=== PATIENT | female | born 1945 | race African-American/Black ===

== ENCOUNTER 2016-10-10 10:52 | Inpatient (IN) | payer MEDICARE, MEDICAID ==
[2016-10-10] MEDS ORDERED: NORMAL SALINE 1000 ML 1,000 ML IV ONE (11:34)
--- NOTE | 2016-10-10 11:46 | ER Document Report ---
ED General - General Chief Complaint: General Weakness Stated Complaint: FLU LIKE SYMPTOMS Notes: Patient was brought in by EMS today. She is telling me that she "can't move my body", unable to walk for the past couple of months. She has very bad arthritis and says she has gout and that's been affecting her joints for the past month and a half. She tells me that she's not been eating well, has decreased activity level from her baseline and was last able to ambulate about 2 months ago. She has a home care nurse who comes in to care for the patient 4 times a week and she has a sister who comes and checks on her daily. Patient is complaining of more weakness today than usual. Patient is not sure if she's had a fever. Patient says that she is feeling short of breath, but has a diagnosis of COPD and still smokes cigarettes. Discharge planning here today investigated this case and says that the family and her primary care physician are working on getting her placed into a fpc. TRAVEL OUTSIDE OF THE [place] IN LAST 30 DAYS: No - Related Data Allergies/Adverse Reactions: No Known Allergies Allergy (Verified 03/16/14 21:48) Home Medications: Current Home Medications Albuterol Sulfate [Albuterol Sulfate 2.5mg/3 mL] 3 ml IH TIDP PRN 10/10/16 [ History] Albuterol Sulfate [Albuterol Sulfate 4 mg Tablet 12 hour] 4 mg PO BID 10/10/16 [ History] Amlodipine Besylate [Norvasc 10 mg Tablet] 10 mg PO QHS 10/10/16 [History] Carvedilol [Coreg 6.25 mg Tablet] 6.25 mg PO BID 10/10/16 [History] Cetirizine HCl [Zyrtec 10 mg Tablet] 10 mg PO DAILY 10/10/16 [History] Fluticasone Propionate [Flonase Nasal [place] 50 Mcg/[place] 16 gm] 1 spray NASL BID 10/10/16 [History] Fluticasone/Salmeterol [Advair 250-50 Diskus 28 dose] 1 puff IH BID 10/10/16 [ History] Hydrocodone Bit/Acetaminophen [Hydrocodon-Acetaminophn 10-325] 1 tab PO Q4HP PRN 10/10/16 [History] Lorazepam [Ativan 0.5 mg Tablet] 0.5 mg PO TIDP PRN 10/10/16 [History] Montelukast Sodium [Singulair 10 mg Tablet] 10 mg PO DAILY 10/10/16 [History] Olmesartan Medoxomil [Benicar] 40 mg PO QHS 10/10/16 [History] Omeprazole 40 mg PO DAILY 10/10/16 [History] Pnv No.122/Iron/Folic Acid [ Multi Tablet] 1 tab PO DAILY 10/10/16 [ History] Prednisone [Deltasone 10 mg Tablet] 10 mg PO BID 10/10/16 [History] Past Medical History - Social History Smoking Status: Current Every Day Smoker Cigarette use (# per day): Yes Family History: None - Past Medical History Cardiac Medical History: Reports: Hx Hypertension Pulmonary Medical History: Reports: Hx COPD Neurological Medical History: Denies: Hx Seizures GI Medical History: Reports: Hx Gastroesophageal Reflux Disease, Hx Ulcer Musculoskeltal Medical History: Reports Hx Arthritis - Rheumatoid arthritis, osteo, Reports Hx Gout Past Surgical History: - Immunizations Hx Diphtheria, Pertussis, Tetanus Vaccination: Yes Review of Systems - Review of Systems Notes: Review of systems is somewhat limited because of patient's capability of answering questions. REVIEW OF SYSTEMS: CONSTITUTIONAL : Not sure if he has had any fever. EENT: Denies eye, ear, nose or mouth or throat pain or other symptoms. CARDIOVASCULAR: Denies chest pain, but occasionally has "tightness" in her chest, but none today. RESPIRATORY: Has had some shortness of breath, but denies cough, chest congestion. GASTROINTESTINAL: Denies abdominal pain or nausea, vomiting, or diarrhea. GENITOURINARY: Denies difficulty or painful urinating, urinary frequency, blood in urine. MUSCULOSKELETAL: Patient has chronic joint deformities of the fingers and hands as well as contractures of the larger joints, secondary to her severe arthritis. SKIN: Denies rash or skin lesions. Just developed a small skin erosion of the lower thoracic, upper lumbar spine over the spinous process, just noted by sister a couple of days ago. No infection, abscess, or drainage there. NEUROLOGICAL: Denies LOC or altered mental status. Denies headache. Denies sensory loss or motor deficits. PSYCHIATRIC: Denies anxiety or stress. Denies depression. ALL OTHER SYSTEMS REVIEWED AND NEGATIVE. Physical Exam - Vital signs Vitals: Resp Pulse Ox 34 H 95 10/10/16 11:13 10/10/16 11:13 Initial vital signs Initial vital signs are temp 99.2, heart rate 99, and respiratory rate 34 with a 95% O2 sat. Interpretation: Tachypneic - Mild, Febrile - Low-grade - Notes Notes: PHYSICAL EXAMINATION: GENERAL: Chronically ill appearing, frail, debilitated elderly female. Vital signs of note are temp 99.2, respiratory rate 34, O2 sat 95% HEAD: Atraumatic, normocephalic. ENT: oropharynx clear without exudates. Moist mucous membranes. NECK: Normal range of motion, supple. LUNGS: Breath sounds show some bibasilar rales. Heart rate 25-30 at bedside by me. HEART: Regular rate and rhythm without murmurs. Not tachycardic. ABDOMEN: Soft, nontender. No guarding or rebound. BACK: No tenderness throughout entire back. Very small, less than 2 cm diameter, abrasion over the lower thoracic or upper most lumbar vertebral spinous process. EXTREMITIES: Multiple arthritic deformities with contractures of all 4 extremities and almost all her joints. NEUROLOGICAL: Normal speech. Exam is difficult because of patient's physical incapabilities. Awake, alert, and oriented x3. PSYCH: Normal mood, normal affect. SKIN: Warm, dry, no rashes. Course - Re-evaluation Re-evalutation: 10/10/16 15:33 Sister says the patient has actually not been able to walk for about a year and a half to 2 years, but really deteriorated significantly in her functional capabilities in the past month to month and a half. Discharge planning was called who spoke with the patient's primary care office and we learned that in progress is an application for this patient to move into a fpc. Spoke with hospitalist sound person, who will admit the patient for weakness, leukocytosis, hypokalemia. - Vital Signs Vital signs: Temp Pulse Resp BP Pulse Ox 98.7 F 105 H 33 H 196/103 H 100 10/10/16 16:59 10/10/16 11:15 10/10/16 19:20 10/10/16 19:20 10/10/16 19:20 - Laboratory Result Diagrams: 10/10/16 12:27 10/10/16 12:27 Laboratory results interpreted by me: 10/10/16 10/10/16 10/10/16 12:27 12:27 12:27 WBC 15.6 H Hgb 11.3 L Hct 35.6 L MCHC 31.8 L RDW 17.0 H Seg Neuts % (Manual) 95 H Lymphocytes % (Manual) 3 L Monocytes % (Manual) 1 L Metamyelocytes % 1 H Abs Neuts (Manual) 15.0 H Potassium 3.3 L Carbon Dioxide 33 H Creatinine 0.36 L Glucose 166 H Creatine Kinase < 20 L Total Protein 4.6 L Albumin 2.8 L Lipase 11.2 L TSH 0.14 L Urine Protein Urine Glucose (UA) Urine Urobilinogen Ur Leukocyte Esterase Urine Ascorbic Acid 10/10/16 13:35 WBC Hgb Hct MCHC RDW Seg Neuts % (Manual) Lymphocytes % (Manual) Monocytes % (Manual) Metamyelocytes % Abs Neuts (Manual) Potassium Carbon Dioxide Creatinine Glucose Creatine Kinase Total Protein Albumin Lipase TSH Urine Protein 30 H Urine Glucose (UA) 50 H Urine Urobilinogen 2.0 H Ur Leukocyte Esterase SMALL H Urine Ascorbic Acid 40 H - Diagnostic Test Radiology reviewed: Image reviewed, Reports reviewed - Chest x-ray is unchanged from previous x-rays. She appears to have COPD. No evidence of pneumonia or acute process. - EKG Interpretation by Me Additional EKG results interpreted by me: 10/10/16 13:43 EKG shows an "ectopic atrial rhythm" with LVH, borderline RAD, ischemia or strain. Some ST changes that were not present on the patient's EKG 08/28/2016. Critical Care Note - Critical Care Note Total time excluding time spent on procedures (mins): 30 Discharge - Discharge Clinical Impression: Weakness, Hypokalemia Leukocytosis Qualifiers: Leukocytosis type: unspecified Qualified Code(s): D72.829 - Elevated white blood cell count, unspecified Disposition: ADMITTED OBSERVATION Admitting Provider: Hospitalist Unit Admitted: Telemetry
[2016-10-10 12:54] LABS: HEMATOCRIT 35.6 % (36.0-47.0); HEMOGLOBIN 11.3 g/dL (12.0-15.5); HGB HCT DIFFERENCE -1.7; MEAN CORPUSCULAR HEMOGLOBIN 29.3 pg (27.0-33.4); MEAN CORPUSCULAR HGB CONC 31.8 g/dL (32.0-36.0); MEAN CORPUSCULAR VOLUME 92 fl (80-97); RED BLOOD COUNT 3.87 10^6/uL (3.72-5.28); WHITE BLOOD COUNT 15.6 10^3/uL (4.0-10.5)
[2016-10-10 13:10] LABS: ALANINE AMINOTRANSFERASE 21 U/L (9-52); ALBUMIN 2.8 g/dL (3.5-5.0); ALKALINE PHOSPHATASE 67 U/L (38-126); ANION GAP 8 (5-19); ASPARTATE AMINO TRANSFERASE 17 U/L (14-36); BILIRUBIN,TOTAL 0.5 mg/dL (0.2-1.3); BLOOD UREA NITROGEN 17 mg/dL (7-20); CALCIUM 9.9 mg/dL (8.4-10.2); CARBON DIOXIDE 33 mmol/L (22-30); CHLORIDE 103 mmol/L (98-107); CREATININE RESULT 0.36 mg/dL (0.52-1.25); GLUCOSE 166 mg/dL (75-110); LIPASE 11.2 U/L (23-300); POTASSIUM 3.3 mmol/L (3.6-5.0); SODIUM 144.1 mmol/L (137-145); TOTAL PROTEIN 4.6 g/dL (6.3-8.2); URIC ACID 2.6 mg/dL (2.5-7.5)
[2016-10-10 13:17] LABS: CREATINE KINASE < 20 U/L (30-135)
[2016-10-10 13:21] LABS: CREATINE KINASE MB 1.06 ng/mL (<4.55); TROPONIN I 0.017 ng/mL
[2016-10-10] MEDS ORDERED: POTASSIUM CHLORIDE 10 MEQ TABLET.SA PO ONE (13:40)
[2016-10-10 13:46] LABS: ANISOCYTOSIS SLIGHT; BASOPHILS % (MANUAL) 0 % (0-2); EOSINOPHILS % (MANUAL) 0 % (0-6); LYMPHOCYTES % (MANUAL) 3 % (13-45); OVALOCYTES 1+; POIKILOCYTOSIS 1+; POLYCHROMASIA 1+; TOTAL CELLS COUNTED 100
[2016-10-10] MEDS ORDERED: HYDROCODONE/ACETAMINOPHEN 5-325 MG TABLET PO ONE (13:50)
[2016-10-10] MEDS ORDERED: CEFTRIAXONE 1 GM/D5W RTU 50 ML IV ONE (14:11)
[2016-10-10 14:14] LABS: APPEARANCE,URINE CLEAR; BILIRUBIN,URINE NEGATIVE (NEGATIVE); GLUCOSE, URINE 50 mg/dL (NEGATIVE); KETONES,URINE NEGATIVE (NEGATIVE); LEUKOCYTE ESTERASE,URINE SMALL (NEGATIVE); NITRITE,URINE NEGATIVE (NEGATIVE); PROTEIN,URINE 30 mg/dL (NEGATIVE); URINE SPECIFIC GRAVITY 1.031
--- NOTE | 2016-10-10 16:29 | PDOC H&P ---
History of Present Illness Admission Date/PCP: LESLEY ANDINO MD Patient complains of: Generalized weakness History of Present Illness: [place] YUAN is a 71 year old female with underlying COPD, hypertension, gout, rheumatoid arthritis debilitated and bedbound with multiple contractures and scoliosis presents to the hospital because of generalized weakness for the past few days. The patient has been having runny nose and postnasal drip for the past few weeks. Patient has nasal medication for allergies. Occasionally there be a cough but no chest congestion or shortness of breath. Patient denies having any chills or fever. For the past few days the patient is unable to exert much effort. She feels generally weak. There is no diarrhea. No discharges or frequency. No chest pain or shortness of breath. No sore throat or swollen glands in the neck. She was brought to the emergency room for evaluation. WBC was elevated. Fever was likewise noted as well. Urinalysis was abnormal. Patient however reports intermittent wheezing. The patient was then referred for admission. Past Medical History Past Medical History: Medication reconciliation pending verification from the patient's pharmacist Cardiac Medical History: Reports: Hypertension Pulmonary Medical History: Reports: Chronic Obstructive Pulmonary Disease (COPD) Neurological Medical History: Denies: Seizures GI Medical History: Reports: Gastroesophageal Reflux Disease Musculoskeltal Medical History: Reports: Arthritis - Rheumatoid arthritis, osteo , Gout, Other - Rheumatoid arthritis Past Surgical History Past Surgical History: Reports: Other - Patient denies any recent operations. Social History Smoking Status: Current Every Day Smoker Frequency of Alcohol Use: None Hx Recreational Drug Use: No Drugs: None Family History Family History: Other - Unknown to the patient, previous report reveals venous thrombosis Parental Family History Reviewed: Yes Children Family History Reviewed: Yes Sibling(s) Family History Reviewed.: Yes Medication/Allergy Home Medications: Amlodipine Besylate 1 tab PO QHS 03/16/14 Esomeprazole Magnesium [Nexium] 1 tab PO DAILY 03/16/14 Hydrocodone Bit/Acetaminophen [Hydrocodon-Acetaminophn 10-325] 1 tab PO TID PRN 03/16/14 Olmesartan Medoxomil [Benicar] 1 tab PO QHS 03/16/14 Ibuprofen [Motrin 600 Mg Tablet] 600 mg PO TID #30 tablet 03/18/[address]/Potassium Clavulanate [Augmentin 500-125 Tablet] 1 tab PO Q8 #21 tablet 10/01/15 Hydrocodone Bit/Acetaminophen [Hydrocodon-Acetaminophn 10-325] 1 each PO 5XDP PRN #10 tablet 10/01/15 Prednisone [Deltasone 10 mg Tablet] 10 mg PO ASDIR PRN #15 tablet 10/01/15 Fluticasone Propionate [Flonase Nasal [place] 50 Mcg/[place] 16 gm] 2 sprays NASL Q12 #1 inhaler 02/23/16 Etodolac [Lodine] 200 mg PO BID #14 capsule 05/25/16 Polyethylene Glycol 3350 [Miralax Powder 17 gm/Packet] 17 gm PO DAILY #30 powd.pack 07/02/16 Sulfamethoxazole/Trimethoprim [Septra-Ds 800-160 mg Tablet] 1 tab PO BID #10 tablet 08/28/16 Allergies/Adverse Reactions: No Known Allergies Allergy (Verified 03/16/14 21:48) Review of Systems Constitutional: PRESENT: chills, fever(s), weakness - Generalized. ABSENT: headache(s), night sweats, weight gain, weight loss Eyes: ABSENT: visual disturbances Ears: ABSENT: hearing changes Nose, Mouth, and Throat: ABSENT: mouth pain, sore throat Cardiovascular: PRESENT: edema - Left lower extremity. ABSENT: chest pain, dyspnea on exertion, orthropnea, palpitations Respiratory: ABSENT: cough, dyspnea, hemoptysis, sputum Gastrointestinal: ABSENT: abdominal pain, constipation, diarrhea, hematemesis, hematochezia, melena, nausea, vomiting Genitourinary: ABSENT: dysuria, hematuria Musculoskeletal: ABSENT: joint swelling Integumentary: ABSENT: rash, wounds Neurological: ABSENT: abnormal gait, abnormal speech, confusion, dizziness, focal weakness, syncope Psychiatric: ABSENT: anxiety, depression, homidical ideation, suicidal ideation Endocrine: ABSENT: cold intolerance, heat intolerance, polydipsia, polyphagia, polyuria Hematologic/Lymphatic: ABSENT: easy bleeding, easy bruising Physical Exam Vital Signs: Temp Pulse Resp BP Pulse Ox 98.2 F 105 H 33 H 182/108 H 97 10/10/16 12:25 10/10/16 11:15 10/10/16 14:31 10/10/16 14:31 10/10/16 14:31 General appearance: PRESENT: mild distress, thin, other - This patient complete sentences with some interruption Head exam: PRESENT: atraumatic, normocephalic Eye exam: PRESENT: conjunctiva pink, EOMI, PERRLA. ABSENT: scleral icterus Ear exam: PRESENT: normal external ear exam. ABSENT: drainage Mouth exam: PRESENT: dry mucosa, neck supple, tongue midline Throat exam: ABSENT: post pharyngeal erythema, tonsillar erythema, tonsillar exudate Neck exam: ABSENT: carotid bruit, JVD, lymphadenopathy, thyromegaly Respiratory exam: PRESENT: decreased breath sounds - Bilateral. ABSENT: rales, rhonchi, wheezes Cardiovascular exam: PRESENT: RRR. ABSENT: diastolic murmur, gallop, rubs, systolic murmur Pulses: PRESENT: normal dorsalis pedis pul Vascular exam: PRESENT: normal capillary refill GI/Abdominal exam: PRESENT: hypoactive bowel sounds, soft. ABSENT: distended, guarding, mass, organolmegaly, rebound, tenderness Rectal exam: PRESENT: deferred Extremities exam: PRESENT: full ROM, +1 edema - Left lower extremity. ABSENT: calf tenderness, clubbing Musculoskeletal exam: PRESENT: deformity - Contracture deformity on the hips bilateral lower extremity, other - scoliosis Neurological exam: PRESENT: alert, awake, oriented to situation Psychiatric exam: PRESENT: appropriate affect, normal mood. ABSENT: homicidal ideation, suicidal ideation Skin exam: PRESENT: dry, intact, warm. ABSENT: cyanosis, rash Results Laboratory Results: 10/10/16 12:27 10/10/16 12:27 10/10/16 10/10/16 10/10/16 12:27 12:27 13:35 WBC 15.6 H RBC 3.87 Hgb 11.3 L Hct 35.6 L MCV 92 MCH 29.3 MCHC 31.8 L RDW 17.0 H Plt Count 217 Seg Neutrophils % Not Reportable Lymphocytes % Not Reportable Monocytes % Not Reportable Eosinophils % Not Reportable Basophils % Not Reportable Absolute Neutrophils Not Reportable Absolute Lymphocytes Not Reportable Absolute Monocytes Not Reportable Absolute Eosinophils Not Reportable Absolute Basophils Not Reportable Sodium 144.1 Potassium 3.3 L Chloride 103 Carbon Dioxide 33 H Anion Gap 8 BUN 17 Creatinine 0.36 L Est GFR ( Amer) > 60 Est GFR (Non-Af Amer) > 60 Glucose 166 H Uric Acid 2.6 Calcium 9.9 Total Bilirubin 0.5 AST 17 ALT 21 Alkaline Phosphatase 67 Total Protein 4.6 L Albumin 2.8 L Lipase 11.2 L Urine Color YELLOW Urine Appearance CLEAR Urine pH 5.0 Ur Specific [place] 1.031 Urine Protein 30 H Urine Glucose (UA) 50 H Urine Ketones NEGATIVE Urine Blood NEGATIVE Urine Nitrite NEGATIVE Ur Leukocyte Esterase SMALL H Urine WBC (Auto) 4 Urine RBC (Auto) 2 10/10/16 10/10/16 12:27 12:27 Creatine Kinase < 20 L CK-MB (CK-2) 1.06 Troponin I 0.017 Impressions: Chest X-Ray 10/10/16 11:34 IMPRESSION: Obstructive lung disease. No acute change Assessment & Plan - Diagnosis (1) COPD exacerbation Is this a current diagnosis for this admission?: Yes (2) Restrictive lung disease Is this a current diagnosis for this admission?: Yes (3) Abnormal urinalysis Is this a current diagnosis for this admission?: Yes (4) Acute sinusitis Qualifiers: Sinusitis location: unspecified location Recurrence: not specified as recurrent Qualified Code(s): J01.90 - Acute sinusitis, unspecified Is this a current diagnosis for this admission?: Yes (5) Hypokalemia Is this a current diagnosis for this admission?: Yes (6) Hypertension Qualifiers: Hypertension type: essential hypertension Qualified Code(s): I10 - Essential (primary) hypertension Is this a current diagnosis for this admission?: Yes (7) Gastroesophageal reflux disease Qualifiers: Esophagitis presence: without esophagitis Qualified Code(s): K21.9 - Gastro-esophageal reflux disease without esophagitis Is this a current diagnosis for this admission?: Yes (8) Debility, unspecified Is this a current diagnosis for this admission?: Yes (9) Rheumatoid arthritis Qualifiers: Rheumatoid arthritis location: unspecified site Rheumatoid factor presence: unspecified presence Qualified Code(s): M06.9 - Rheumatoid arthritis, unspecified Is this a current diagnosis for this admission?: Yes (10) Gout Qualifiers: Gout site: unspecified site Gout etiology: unspecified cause Chronicity: unspecified Qualified Code(s): M10.9 - Gout, unspecified Is this a current diagnosis for this admission?: Yes - Time Time Spent: 50 to 70 Minutes Anticipated discharge: SNF - Inpatient Certification Based on my medical assessment, after consideration of the patient's comorbidities, presenting symptoms, or acuity I expect that the services needed warrant INPATIENT care.: Yes I certify that my determination is in accordance with my understanding of Medicare's requirements for reasonable and necessary INPATIENT services [42 CFR 412.3e].: Yes Medical Necessity: Significant Comorbidiites Make Outpatient Treatment Too Risky , Need Close Monitoring Due to Risk of Patient Decompensation, Need For IV Fluids, Need for Nebulizer Therapy and Monitoring of Response Post Hospital Care: D/C Grocery Clerk Marking Documentation - Plan Summary Plan Summary: The patient will be admitted to telemetry. Supplemental oxygen will be given. We will start the patient on intravenous steroids and [id number] nebulizers. We will culture the urine and begin antibiotic therapy. We will have physical therapy get involved. Patient however had significant debility but may benefit for any motion exercises that would prevent worsening contractures. We will hydrate the patient with normal saline gently. We will obtain a lower extremity Doppler to evaluate for deep venous . DVT prophylaxis with Lovenox will be placed. Further testing depends on the initial evaluation as outlined above. We will replace potassium and monitor electrolytes.
[2016-10-10] MEDS ORDERED: LEVALBUTEROL HCL NEB 1.25 MG/3 ML AMPUL NEB PRN (16:30)
[2016-10-10] MEDS ORDERED: ONDANSETRON HCL INJ/PF 4 MG/2 ML SDV IV PRN (16:39)
[2016-10-10] MEDS ORDERED: HYDRALAZINE HCL INJ/PF 20 MG/1 ML SDV IV PRN (16:48)
[2016-10-10] MEDS: LANSOPRAZOLE 30 MG TAB.RAP.DR PO SCH (17:00)
[2016-10-10] MEDS ORDERED: ENOXAPARIN SODIUM INJ 40 MG/0.4 ML DISP.SYRIN SUBCUT ONE (17:45)
[2016-10-10] MEDS ORDERED: LEVOFLOXACIN 750 MG/D5W RTU 750 MG/150 ML RTUPB IV ONE (18:00)
[2016-10-10] MEDS: DOCUSATE SODIUM 100 MG CAPSULE PO SCH (18:00)
[2016-10-10 18:05] LABS: THYROID STIMULATING HORMONE 0.14 uIU/mL (0.47-4.68)
[2016-10-10] MEDS ORDERED: DIPHENHYDRAMINE HCL 50 MG/ML VIAL IV ONE (18:08)
[2016-10-10] MEDS: IPRATROPIUM BROMIDE 0.02% NEB 0.5 MG/2.5 ML AMPUL NEB SCH (18:10)
[2016-10-10] MEDS: METHYLPREDNISOLONE INJ 125 MG/2 ML SDV IV SCH (18:13)
[2016-10-10] MEDS: LEVALBUTEROL HCL NEB 1.25 MG/3 ML AMPUL NEB SCH (20:48)
[2016-10-10] MEDS ORDERED: OLMESARTAN MEDOXOMIL PO SCH (22:00)
[2016-10-10] MEDS: LOSARTAN POTASSIUM 50 MG TABLET PO SCH (22:50)
[2016-10-10] MEDS: AMLODIPINE BESYLATE 10 MG TABLET PO SCH (22:50)
[2016-10-11] MEDS: METHYLPREDNISOLONE INJ 125 MG/2 ML SDV IV SCH ×4 (01:38→17:17)
[2016-10-11] MEDS: IPRATROPIUM BROMIDE 0.02% NEB 0.5 MG/2.5 ML AMPUL NEB SCH ×4 (01:39→19:12)
[2016-10-11] MEDS: LEVALBUTEROL HCL NEB 1.25 MG/3 ML AMPUL NEB SCH ×4 (01:39→19:12)
[2016-10-11] MEDS: NORMAL SALINE 1000 ML 1,000 ML IV PRN ×2 (02:48→17:21)
[2016-10-11] MEDS: ACETAMINOPHEN 325 MG TABLET PO PRN ×2 (04:00→10:31)
[2016-10-11] MEDS: LANSOPRAZOLE 30 MG TAB.RAP.DR PO SCH ×2 (06:06→17:17)
[2016-10-11 07:34] LABS: HEMATOCRIT 37.7 % (36.0-47.0); HEMOGLOBIN 11.3 g/dL (12.0-15.5); HGB HCT DIFFERENCE -3.8; MEAN CORPUSCULAR HEMOGLOBIN 28.4 pg (27.0-33.4); MEAN CORPUSCULAR VOLUME 95 fl (80-97); RED BLOOD COUNT 3.98 10^6/uL (3.72-5.28); RED CELL DISTRIBUTION WIDTH 17.2 % (11.5-14.0); WHITE BLOOD COUNT 14.2 10^3/uL (4.0-10.5)
[2016-10-11 07:47] LABS: ANION GAP 6 (5-19); BLOOD UREA NITROGEN 10 mg/dL (7-20); CALCIUM 9.8 mg/dL (8.4-10.2); CARBON DIOXIDE 28 mmol/L (22-30); CHLORIDE 106 mmol/L (98-107); CREATININE RESULT 0.29 mg/dL (0.52-1.25); GLUCOSE 115 mg/dL (75-110); MAGNESIUM 1.8 mg/dL (1.6-2.3); PHOSPHORUS 2.8 mg/dL (2.5-4.5); POTASSIUM 3.9 mmol/L (3.6-5.0); SODIUM 139.6 mmol/L (137-145)
[2016-10-11 07:55] LABS: BASOPHILS % (MANUAL) 0 % (0-2); EOSINOPHILS % (MANUAL) 0 % (0-6); LYMPHOCYTES % (MANUAL) 2 % (13-45); TOTAL CELLS COUNTED 100
[2016-10-11 07:56] LABS: ANISOCYTOSIS 1+; OVALOCYTES SLIGHT; POIKILOCYTOSIS SLIGHT; POLYCHROMASIA SLIGHT
[2016-10-11] MEDS ORDERED: ENOXAPARIN SODIUM INJ 40 MG/0.4 ML DISP.SYRIN SUBCUT SCH (08:00)
[2016-10-11] MEDS: POLYETHYLENE GLYCOL 3350 POWDER 17 GM/1 PACKET PO SCH (10:30)
[2016-10-11] MEDS: DOCUSATE SODIUM 100 MG CAPSULE PO SCH ×2 (10:31→17:17)
[2016-10-11] MEDS: LEVOFLOXACIN 750 MG/D5W RTU 150 ML IV SCH (10:31)
--- NOTE | 2016-10-11 14:55 | EKG REPORT ---
SEVERITY:- ABNORMAL ECG - COMPLETE AV BLOCK, A-RATE 313 BORDERLINE RIGHT AXIS DEVIATION CONSIDER LEFT VENTRICULAR HYPERTROPHY CONSIDER INFERIOR INFARCT ST DEPRESSION, CONSIDER ISCHEMIA, INF LEADS : Confirmed by: Nelida Rousseau 11-Oct-2016 14:54:22
--- NOTE | 2016-10-11 14:56 | EKG REPORT ---
SEVERITY:- ABNORMAL ECG - ECTOPIC ATRIAL RHYTHM BORDERLINE RIGHT AXIS DEVIATION CONSIDER LEFT VENTRICULAR HYPERTROPHY REPOL ABNRM SUGGESTS ISCHEMIA, DIFFUSE LEADS ANTERIOR ST ELEVATION, PROBABLY DUE TO LVH : Confirmed by: Nelida Rousseau 11-Oct-2016 14:54:51
--- NOTE | 2016-10-11 15:19 | PDOC PROGRESS REPORT ---
Subjective Progress Note for:: 10/11/16 Subjective:: Patient reports she is feeling better. Her wheezing has resolved. No nausea or vomiting. No diarrhea. No chills or fever. No chest pain nor abdominal pain. Patient however having generalized body aches and pain. Physical Exam Vital Signs: Temp Pulse Resp BP Pulse Ox 98.4 F 112 H 18 115/66 97 10/11/16 11:41 10/11/16 13:56 10/11/16 13:56 10/11/16 11:41 10/11/16 13:56 Intake & Output 10/10/16 10/11/16 10/12/16 06:59 06:59 06:59 Intake Total 250 120 Output Total 300 250 Balance -50 -130 Weight 30.8 kg General appearance: PRESENT: no acute distress, cooperative Head exam: PRESENT: normocephalic Eye exam: PRESENT: EOMI Mouth exam: PRESENT: moist, neck supple Neck exam: ABSENT: JVD Respiratory exam: PRESENT: clear to auscultation ivan. ABSENT: rhonchi, wheezes Cardiovascular exam: PRESENT: RRR. ABSENT: gallop GI/Abdominal exam: PRESENT: hypoactive bowel sounds, soft. ABSENT: distended, tenderness Extremities exam: PRESENT: pedal edema - Left Musculoskeletal exam: PRESENT: other - Multiple contraction deformity of the extremities and trunk Neurological exam: PRESENT: alert, awake Skin exam: PRESENT: dry, warm. ABSENT: cyanosis Results Laboratory Results: 10/11/16 07:10 10/11/16 07:10 10/11/16 10/11/16 07:10 07:10 WBC 14.2 H RBC 3.98 Hgb 11.3 L Hct 37.7 MCV 95 MCH 28.4 MCHC 30.0 L RDW 17.2 H Plt Count 201 Seg Neutrophils % Not Reportable Lymphocytes % Not Reportable Monocytes % Not Reportable Eosinophils % Not Reportable Basophils % Not Reportable Absolute Neutrophils Not Reportable Absolute Lymphocytes Not Reportable Absolute Monocytes Not Reportable Absolute Eosinophils Not Reportable Absolute Basophils Not Reportable Sodium 139.6 Potassium 3.9 Chloride 106 Carbon Dioxide 28 Anion Gap 6 BUN 10 Creatinine 0.29 L Est GFR ( Amer) > 60 Est GFR (Non-Af Amer) > 60 Glucose 115 H Calcium 9.8 Phosphorus 2.8 Magnesium 1.8 Impressions: Chest X-Ray 10/10/16 11:34 IMPRESSION: Obstructive lung disease. No acute change Venous Doppler Study 10/10/16 16:47 IMPRESSION: NO EVIDENCE OF DVT OR SVT IN THE LEFT LEG. Assessment & Plan - Diagnosis (1) COPD exacerbation Is this a current diagnosis for this admission?: Yes (2) Restrictive lung disease Is this a current diagnosis for this admission?: Yes (3) Abnormal urinalysis Is this a current diagnosis for this admission?: Yes (4) Acute sinusitis Qualifiers: Sinusitis location: unspecified location Recurrence: not specified as recurrent Qualified Code(s): J01.90 - Acute sinusitis, unspecified Is this a current diagnosis for this admission?: Yes (5) Hypokalemia Is this a current diagnosis for this admission?: Yes (6) Hypertension Qualifiers: Hypertension type: essential hypertension Qualified Code(s): I10 - Essential (primary) hypertension Is this a current diagnosis for this admission?: Yes (7) Gastroesophageal reflux disease Qualifiers: Esophagitis presence: without esophagitis Qualified Code(s): K21.9 - Gastro-esophageal reflux disease without esophagitis Is this a current diagnosis for this admission?: Yes (8) Debility, unspecified Is this a current diagnosis for this admission?: Yes (9) Rheumatoid arthritis Qualifiers: Rheumatoid arthritis location: unspecified site Rheumatoid factor presence: unspecified presence Qualified Code(s): M06.9 - Rheumatoid arthritis, unspecified Is this a current diagnosis for this admission?: Yes (10) Gout Qualifiers: Gout site: unspecified site Gout etiology: unspecified cause Chronicity: unspecified Qualified Code(s): M10.9 - Gout, unspecified Is this a current diagnosis for this admission?: Yes - Time Time Spent with patient: 15-24 minutes - Plan Summary Plan Summary: We are going to continue steroids and bronchodilators. Continue antibiotic and follow urine culture. We will begin Zanaflex and give as needed analgesics for pain control. Continue supportive care. transportation planner for long-term care facility.
[2016-10-11] MEDS ORDERED: TIZANIDINE HCL 4 MG TABLET PO ONE (15:30)
[2016-10-11] MEDS: HYDROCODONE/ACETAMINOPHEN 10-325 MG TABLET PO PRN ×2 (15:53→21:55)
[2016-10-11] MEDS: LOSARTAN POTASSIUM 50 MG TABLET PO SCH (21:54)
[2016-10-11] MEDS: AMLODIPINE BESYLATE 10 MG TABLET PO SCH (21:55)
[2016-10-12] MEDS: METHYLPREDNISOLONE INJ 125 MG/2 ML SDV IV SCH ×2 (01:02→05:39)
[2016-10-12] MEDS: IPRATROPIUM BROMIDE 0.02% NEB 0.5 MG/2.5 ML AMPUL NEB SCH ×4 (01:25→20:37)
[2016-10-12] MEDS: LEVALBUTEROL HCL NEB 1.25 MG/3 ML AMPUL NEB SCH ×4 (01:25→20:37)
[2016-10-12] MEDS: HYDROCODONE/ACETAMINOPHEN 10-325 MG TABLET PO PRN ×4 (03:28→22:22)
[2016-10-12] MEDS: LANSOPRAZOLE 30 MG TAB.RAP.DR PO SCH ×2 (05:39→17:07)
[2016-10-12] MEDS: NORMAL SALINE 1000 ML 1,000 ML IV PRN (05:39)
[2016-10-12] MEDS: ENOXAPARIN SODIUM INJ 30 MG/0.3 ML DISP.SYRIN SUBCUT SCH (08:26)
[2016-10-12] MEDS: TIZANIDINE HCL 4 MG TABLET PO SCH ×3 (09:24→17:07)
[2016-10-12] MEDS: DOCUSATE SODIUM 100 MG CAPSULE PO SCH ×2 (09:24→17:07)
[2016-10-12] MEDS: LEVOFLOXACIN 750 MG/D5W RTU 150 ML IV SCH (09:25)
[2016-10-12] MEDS: POLYETHYLENE GLYCOL 3350 POWDER 17 GM/1 PACKET PO SCH (09:25)
[2016-10-12] MEDS ORDERED: NORMAL SALINE 1000 ML 1,000 ML IV PRN (11:19)
--- NOTE | 2016-10-12 11:24 | PDOC PROGRESS REPORT ---
Subjective Progress Note for:: 10/12/16 Subjective:: Patient reports she continues to feel better. Her wheezing has resolved. No nausea or vomiting. No diarrhea. No chills or fever. No chest pain nor abdominal pain. Body aches and pain are better . Patient however having lower extremity edema. Physical Exam Vital Signs: Temp Pulse Resp BP Pulse Ox 98.5 F 98 18 137/68 H 94 10/12/16 08:09 10/12/16 08:23 10/12/16 08:23 10/12/16 08:09 10/12/16 08:23 Intake & Output 10/11/16 10/12/16 10/13/16 06:59 06:59 06:59 Intake Total 250 2350 Output Total 300 700 Balance -50 1650 Weight 30.8 kg 35.3 kg General appearance: PRESENT: no acute distress, cooperative Head exam: PRESENT: normocephalic Eye exam: PRESENT: EOMI Mouth exam: PRESENT: moist, neck supple Neck exam: ABSENT: JVD Respiratory exam: PRESENT: clear to auscultation ivan. ABSENT: rhonchi, wheezes Cardiovascular exam: PRESENT: RRR. ABSENT: gallop GI/Abdominal exam: PRESENT: normal bowel sounds, soft. ABSENT: distended Extremities exam: PRESENT: +1 edema - Right Neurological exam: PRESENT: alert, awake, oriented to situation Skin exam: PRESENT: dry, warm. ABSENT: cyanosis Results Laboratory Results: 10/11/16 07:10 10/11/16 07:10 Impressions: Chest X-Ray 10/10/16 11:34 IMPRESSION: Obstructive lung disease. No acute change Venous Doppler Study 10/10/16 16:47 IMPRESSION: NO EVIDENCE OF DVT OR SVT IN THE LEFT LEG. Assessment & Plan - Diagnosis (1) COPD exacerbation Is this a current diagnosis for this admission?: Yes (2) Restrictive lung disease Is this a current diagnosis for this admission?: Yes (3) Abnormal urinalysis Is this a current diagnosis for this admission?: Yes (4) Acute sinusitis Qualifiers: Sinusitis location: unspecified location Recurrence: not specified as recurrent Qualified Code(s): J01.90 - Acute sinusitis, unspecified Is this a current diagnosis for this admission?: Yes (5) Hypokalemia Is this a current diagnosis for this admission?: Yes (6) Hypertension Qualifiers: Hypertension type: essential hypertension Qualified Code(s): I10 - Essential (primary) hypertension Is this a current diagnosis for this admission?: Yes (7) Gastroesophageal reflux disease Qualifiers: Esophagitis presence: without esophagitis Qualified Code(s): K21.9 - Gastro-esophageal reflux disease without esophagitis Is this a current diagnosis for this admission?: Yes (8) Debility, unspecified Is this a current diagnosis for this admission?: Yes (9) Rheumatoid arthritis Qualifiers: Rheumatoid arthritis location: unspecified site Rheumatoid factor presence: unspecified presence Qualified Code(s): M06.9 - Rheumatoid arthritis, unspecified Is this a current diagnosis for this admission?: Yes (10) Gout Qualifiers: Gout site: unspecified site Gout etiology: unspecified cause Chronicity: unspecified Qualified Code(s): M10.9 - Gout, unspecified Is this a current diagnosis for this admission?: Yes - Time Time Spent with patient: 25-34 minutes - Plan Summary Plan Summary: We will switch to oral antibiotic and steroids today. Decrease intravenous fluids. Out of bed to chair. Physical therapy. Start oral Lasix. Continue other medications and supportive care. Awaiting placement.
[2016-10-12] MEDS ORDERED: PREDNISONE 20 MG TABLET PO ONE (13:00)
[2016-10-12] MEDS ORDERED: FUROSEMIDE 20 MG TABLET PO ONE (13:00)
[2016-10-12] MEDS: AMLODIPINE BESYLATE 10 MG TABLET PO SCH (22:12)
[2016-10-12] MEDS: LOSARTAN POTASSIUM 50 MG TABLET PO SCH (22:12)
[2016-10-13] MEDS: IPRATROPIUM BROMIDE 0.02% NEB 0.5 MG/2.5 ML AMPUL NEB SCH ×4 (02:07→21:15)
[2016-10-13] MEDS: LEVALBUTEROL HCL NEB 1.25 MG/3 ML AMPUL NEB SCH ×4 (02:07→21:16)
[2016-10-13] MEDS: LANSOPRAZOLE 30 MG TAB.RAP.DR PO SCH ×2 (07:04→17:23)
[2016-10-13] MEDS: HYDROCODONE/ACETAMINOPHEN 10-325 MG TABLET PO PRN ×4 (07:04→22:53)
[2016-10-13] MEDS: ENOXAPARIN SODIUM INJ 30 MG/0.3 ML DISP.SYRIN SUBCUT SCH (09:03)
[2016-10-13] MEDS: FUROSEMIDE 20 MG TABLET PO SCH (09:04)
[2016-10-13] MEDS: DOCUSATE SODIUM 100 MG CAPSULE PO SCH ×2 (09:05→17:24)
[2016-10-13] MEDS: LEVOFLOXACIN 750 MG TABLET PO SCH (09:05)
[2016-10-13] MEDS: TIZANIDINE HCL 4 MG TABLET PO SCH ×3 (09:06→17:24)
[2016-10-13] MEDS: POLYETHYLENE GLYCOL 3350 POWDER 17 GM/1 PACKET PO SCH (09:07)
[2016-10-13] MEDS ORDERED: PREDNISONE 20 MG TABLET PO SCH (10:00)
--- NOTE | 2016-10-13 10:22 | PDOC PROGRESS REPORT ---
Subjective Progress Note for:: 10/13/16 Subjective:: Patient has no new complaints. Lower extremity edema intermittent depending on the patient's position. Sometimes it is the "sometimes it is the right foot. Patient denies any shortness of breath or wheezing. No temperature spikes. No nausea or vomiting. Patient complains of some intermittent back pain and spasms. Physical Exam Vital Signs: Temp Pulse Resp BP Pulse Ox 99.1 F 92 22 H 145/67 H 95 10/13/16 07:29 10/13/16 07:29 10/13/16 07:29 10/13/16 07:29 10/13/16 07:29 Intake & Output 10/12/16 10/13/16 10/14/16 06:59 06:59 06:59 Intake Total 2350 415 Output Total 700 800 Balance 1650 -385 Weight 35.3 kg 37 kg General appearance: PRESENT: no acute distress, cooperative Head exam: PRESENT: normocephalic Eye exam: PRESENT: EOMI Mouth exam: PRESENT: moist, neck supple Neck exam: ABSENT: JVD Respiratory exam: PRESENT: unlabored. ABSENT: rhonchi, wheezes Cardiovascular exam: PRESENT: RRR. ABSENT: gallop GI/Abdominal exam: PRESENT: soft. ABSENT: distended, tenderness Extremities exam: PRESENT: other - Edema on the left foot Musculoskeletal exam: PRESENT: tenderness - Multiple flexion contractures both upper and extremities Neurological exam: PRESENT: alert, awake, oriented to situation Skin exam: PRESENT: dry, warm. ABSENT: cyanosis Results Laboratory Results: 10/11/16 07:10 10/11/16 07:10 Impressions: Chest X-Ray 10/10/16 11:34 IMPRESSION: Obstructive lung disease. No acute change Venous Doppler Study 10/10/16 16:47 IMPRESSION: NO EVIDENCE OF DVT OR SVT IN THE LEFT LEG. Assessment & Plan - Diagnosis (1) COPD exacerbation Is this a current diagnosis for this admission?: Yes (2) Restrictive lung disease Is this a current diagnosis for this admission?: Yes (3) Abnormal urinalysis Is this a current diagnosis for this admission?: Yes (4) Acute sinusitis Qualifiers: Sinusitis location: unspecified location Recurrence: not specified as recurrent Qualified Code(s): J01.90 - Acute sinusitis, unspecified Is this a current diagnosis for this admission?: Yes (5) Hypokalemia Is this a current diagnosis for this admission?: Yes (6) Hypertension Qualifiers: Hypertension type: essential hypertension Qualified Code(s): I10 - Essential (primary) hypertension Is this a current diagnosis for this admission?: Yes (7) Gastroesophageal reflux disease Qualifiers: Esophagitis presence: without esophagitis Qualified Code(s): K21.9 - Gastro-esophageal reflux disease without esophagitis Is this a current diagnosis for this admission?: Yes (8) Debility, unspecified Is this a current diagnosis for this admission?: Yes (9) Rheumatoid arthritis Qualifiers: Rheumatoid arthritis location: unspecified site Rheumatoid factor presence: unspecified presence Qualified Code(s): M06.9 - Rheumatoid arthritis, unspecified Is this a current diagnosis for this admission?: Yes (10) Gout Qualifiers: Gout site: unspecified site Gout etiology: unspecified cause Chronicity: unspecified Qualified Code(s): M10.9 - Gout, unspecified Is this a current diagnosis for this admission?: Yes - Time Time Spent with patient: Less than 15 minutes - Plan Summary Plan Summary: We will continue current medications. Continue antibiotics, muscle relaxant, and analgesics. Awaiting long-term placement. Wean steroids.
[2016-10-13] MEDS ORDERED: PREDNISONE 20 MG TABLET PO ONE (11:30)
[2016-10-13] MEDS: LOSARTAN POTASSIUM 50 MG TABLET PO SCH (22:54)
[2016-10-13] MEDS: METOPROLOL TARTRATE 50 MG TABLET PO SCH (22:54)
[2016-10-14] MEDS: IPRATROPIUM BROMIDE 0.02% NEB 0.5 MG/2.5 ML AMPUL NEB SCH ×3 (03:07→13:43)
[2016-10-14] MEDS: LEVALBUTEROL HCL NEB 1.25 MG/3 ML AMPUL NEB SCH ×3 (03:07→13:44)
[2016-10-14] MEDS: HYDROCODONE/ACETAMINOPHEN 10-325 MG TABLET PO PRN ×3 (03:19→16:10)
[2016-10-14] MEDS: ACETAMINOPHEN 325 MG TABLET PO PRN (06:00)
[2016-10-14] MEDS: LANSOPRAZOLE 30 MG TAB.RAP.DR PO SCH ×2 (08:09→16:10)
[2016-10-14] MEDS: ENOXAPARIN SODIUM INJ 30 MG/0.3 ML DISP.SYRIN SUBCUT SCH (08:21)
[2016-10-14] MEDS: METOPROLOL TARTRATE 50 MG TABLET PO SCH (09:29)
[2016-10-14] MEDS: TIZANIDINE HCL 4 MG TABLET PO SCH ×3 (09:29→17:32)
[2016-10-14] MEDS: POLYETHYLENE GLYCOL 3350 POWDER 17 GM/1 PACKET PO SCH (09:29)
[2016-10-14] MEDS: DOCUSATE SODIUM 100 MG CAPSULE PO SCH ×2 (09:30→17:32)
[2016-10-14] MEDS: FUROSEMIDE 20 MG TABLET PO SCH (09:30)
[2016-10-14] MEDS: LEVOFLOXACIN 750 MG TABLET PO SCH (09:30)
[2016-10-14] MEDS ORDERED: PREDNISONE 20 MG TABLET PO SCH (10:00)
--- NOTE | 2016-10-14 14:11 | PDOC TRANSFER SUMMARY ---
General - Admit/Disc Date/PCP Admission Date/Primary Care Provider: 10/10/16 16:30 LESLEY ANDINO MD Discharge Date: 10/14/16 - Discharge Diagnosis (1) COPD exacerbation Is this a current diagnosis for this admission?: Yes (2) Restrictive lung disease Is this a current diagnosis for this admission?: Yes (3) Abnormal urinalysis Is this a current diagnosis for this admission?: Yes (4) Acute sinusitis Is this a current diagnosis for this admission?: Yes (5) Hypokalemia Is this a current diagnosis for this admission?: Yes (6) Hypertension Is this a current diagnosis for this admission?: Yes (7) Gastroesophageal reflux disease Is this a current diagnosis for this admission?: Yes (8) Debility, unspecified Is this a current diagnosis for this admission?: Yes (9) Rheumatoid arthritis Is this a current diagnosis for this admission?: Yes (10) Gout Is this a current diagnosis for this admission?: Yes - Additional Information Resuscitation Status: Full Code Discharge Diet: Cardiac - low salt, low fat Discharge Activity: Activity As Tolerated, Balance Activity w/Rest Home Medications: Carvedilol [Coreg 6.25 mg Tablet] 6.25 mg PO BID 10/10/16 Fluticasone Propionate [Flonase Nasal [place] 50 Mcg/[place] 16 gm] 1 spray NASL BID 10/10/16 Fluticasone/Salmeterol [Advair 250-50 Diskus 28 dose] 1 puff IH BID 10/10/16 Olmesartan Medoxomil [Benicar] 40 mg PO QHS 10/10/16 Omeprazole 40 mg PO DAILY 10/10/16 Pnv No.122/Iron/Folic Acid [ Multi Tablet] 1 tab PO DAILY 10/10/16 Prednisone [Deltasone 10 mg Tablet] 10 mg PO BID 10/10/16 Docusate Sodium [Colace 100 mg Capsule] 100 mg PO BID capsule 10/14/16 Furosemide [Lasix 20 mg Tablet] 20 mg PO DAILY tablet 10/14/16 Hydrocodone Bit/Acetaminophen [Hydrocodon-Acetaminophn 10-325] 1 tab PO Q4HP PRN #30 tablet 10/14/16 Ipratropium [place] [Atrovent 0.02% Neb 0.5 mg/2.5 ml Ampul] 0.5 mg NEB RTQ6 vial.neb 10/14/16 Levalbuterol HCl [Xopenex Neb 1.25 mg/3 ml Ampul] 1.25 mg NEB RTQ2HP PRN vial.[facility] 10/14/16 Levalbuterol HCl [Xopenex Neb 1.25 mg/3 ml Ampul] 1.25 mg NEB RTQ6 vial.neb Levofloxacin [Levaquin 750 mg Tablet] 750 mg PO DAILY tablet 10/14/16 Lorazepam [Ativan 0.5 mg Tablet] 0.5 mg PO TIDP PRN #40 tablet 10/14/16 Polyethylene Glycol 3350 [Miralax Powder 17 gm/Packet] 17 gm PO DAILY powd.pack 10/14/16 Tizanidine HCl [Zanaflex 4 mg Tablet] 2 mg PO TID PRN #40 tablet 10/14/16 Additional Information: Antibiotic to continue for 3 more days History of Present Illness Admission Date/PCP: 10/10/16 16:30 LESLEY ANDINO MD Patient complains of: Generalized weakness History of Present Illness: GEOR[place] YUAN is a 71 year old female with underlying COPD, hypertension, gout, rheumatoid arthritis debilitated and bedbound with multiple contractures and scoliosis presents to the hospital because of generalized weakness for the past few days. The patient has been having runny nose and postnasal drip for the past few weeks. Patient has nasal medication for allergies. Occasionally there be a cough but no chest congestion or shortness of breath. Patient denies having any chills or fever. For the past few days the patient is unable to exert much effort. She feels generally weak. There is no diarrhea. No discharges or frequency. No chest pain or shortness of breath. No sore throat or swollen glands in the neck. She was brought to the emergency room for evaluation. WBC was elevated. Fever was likewise noted as well. Urinalysis was abnormal. Patient however reports intermittent wheezing. The patient was then referred for admission. Hospital Course Hospital Course: The patient was admitted to telemetry. The patient was gently hydrated. Patient was started on steroids and [id number] nebulizers. Antibiotic was likewise started for possible sinusitis due to the patient's sinus congestion. With the above measures the patient's breathing improved. Cultures to date were negative. Family unable to care for the patient and therefore the patient was referred to the habitat conservation planner for long-term care. Patient has chronic debility with contraction deformities and scoliosis. Likewise restrictive lung disease likewise present. Muscle relaxant was added to the patient's treatment regimen and her oral analgesics was likewise continued. Chronically she was on steroids and when her breathing improved she was shifted to oral prednisone. She is currently down to her regular home dose of steroids. Physical therapy was instituted. Electrolytes were monitored and were replaced. Overall the patient improved. She does have a lot of discomfort due to her disability and contractures. Physical therapy has been working with the patient. The rest of the hospitalization unremarkable. When a bed was available and she was eventually transferred. Physical Exam Vital Signs: Temp Pulse Resp BP Pulse Ox 97.9 F 73 16 131/75 H 94 10/14/16 12:56 10/14/16 12:56 10/14/16 12:56 10/14/16 12:56 10/14/16 12:56 Intake & Output 10/13/16 10/14/16 10/15/16 06:59 06:59 06:59 Intake Total 415 460 Output Total 800 1220 Balance -385 -760 Weight 37 kg 36.2 kg General appearance: PRESENT: no acute distress, cooperative, thin, other - Multiple contraction deformity on the upper and lower extremities as well as the hip Head exam: PRESENT: normocephalic Eye exam: PRESENT: EOMI Ear exam: PRESENT: normal external ear exam. ABSENT: drainage Mouth exam: PRESENT: moist, neck supple Neck exam: ABSENT: JVD Respiratory exam: PRESENT: clear to auscultation ivan, unlabored. ABSENT: wheezes Cardiovascular exam: PRESENT: RRR. ABSENT: gallop GI/Abdominal exam: PRESENT: hypoactive bowel sounds, soft. ABSENT: distended Extremities exam: PRESENT: other - Trace edema Neurological exam: PRESENT: alert, awake, oriented to situation Psychiatric exam: PRESENT: normal mood Skin exam: PRESENT: dry, warm. ABSENT: cyanosis Results Laboratory Results: 10/11/16 07:10 10/11/16 07:10 Impressions: Chest X-Ray 10/10/16 11:34 IMPRESSION: Obstructive lung disease. No acute change Venous Doppler Study 10/10/16 16:47 IMPRESSION: NO EVIDENCE OF DVT OR SVT IN THE LEFT LEG. Transfer Plan - Disposition Transfer Plan: Transfer to [facility] [place]. Patient will be followed by the physician in the facility - Time Spent with Patient Time spent with patient: Less than 30 Minutes Qualifiers PATEINT BEING DISCHARGED WITH ANY OF THE FOLLOWING DIAGNOSIS?: No Plan Discharge Plan: Follow-up with primary care physician in one to 2 weeks Time Spent: Less than 30 Minutes
[2016-10-14 18:52] VITALS: BP 130/67
== END 2016-10-14 18:53 | DRG 192 ==
LOC: ER 10:52 → EH 16:30 → OBSVTOIN 16:30 → UNDOADMOB 16:39 → EH 16:39 → 3W 10-11 03:25 → 4S 10-13 11:56
PROC: 3E0F73Z Introduction of Anti-inflammatory into Respiratory Tract, Via Natural or Artificial Opening (ICD-10-PCS; principal; 2016-10-10)
DX: J44.1 Chronic obstructive pulmonary disease with (acute) exacerbation (principal); J98.4 Other disorders of lung; J01.90 Acute sinusitis, unspecified; E87.6 Hypokalemia; I10 Essential (primary) hypertension; K21.9 Gastro-esophageal reflux disease without esophagitis; M06.9 Rheumatoid arthritis, unspecified; M10.9 Gout, unspecified; M41.9 Scoliosis, unspecified; F17.210 Nicotine dependence, cigarettes, uncomplicated; Z79.899 Other long term (current) drug therapy; Z74.01 Bed confinement status; Z84.89 Family history of other specified conditions
CPT/HCPCS: 36415; 51702; 71010; 80048; 80053; 81001; 82550; 82553; 83690; 83735; 84100; 84439; 84443; 84484; 84550; 85025; 86430; 87040; 87086; 93005; 93010; 93971; 94640; 96361; 96365; 96366; 96367; 96372; 96375; 99291; G8978-GP; G8979-GP; J0360; J0696; J1200; J1650; J1956; J2405; J2930; J3490; J7030; J7512

== ENCOUNTER 2016-11-21 01:19 | Inpatient (IN) | payer MEDICARE, MEDICAID ==
--- NOTE | 2016-11-21 02:18 | ER Document Report ---
ED General - General Chief Complaint: Shortness Of Breath Stated Complaint: SHORTNESS OF BREATH Notes: Patient is a 71-year-old female who presents with complaints of difficulty breathing. She's long history of COPD. History is very limited from the patient. I did review her previous records. She is full code. She's been admitted several times in past for COPD. Patient complains of difficulty breathing is worsening over last day. No chest pain. She is unsure she's had fevers. She denies any other complaints at this time. TRAVEL OUTSIDE OF THE [place] IN LAST 30 DAYS: No - Related Data Allergies/Adverse Reactions: No Known Allergies Allergy (Verified 11/21/16 05:26) Past Medical History - Social History Smoking Status: Former Smoker Frequency of alcohol use: None Drug Abuse: None Family History: None - Past Medical History Cardiac Medical History: Reports: Hx Hypertension Pulmonary Medical History: Reports: Hx COPD Neurological Medical History: Denies: Hx Seizures GI Medical History: Reports: Hx Gastroesophageal Reflux Disease, Hx Ulcer Musculoskeltal Medical History: Reports Hx Arthritis - Rheumatoid arthritis, osteo, Reports Hx Gout Past Surgical History: Reports: Other - Patient denies any recent operations. - Immunizations Hx Diphtheria, Pertussis, Tetanus Vaccination: Yes Review of Systems - Review of Systems Notes: My Normal Review Basic REVIEW OF SYSTEMS: CONSTITUTIONAL : Unknown if has had fevers. EENT: Denies eye, ear, throat, or mouth pain or symptoms. Denies nasal or sinus congestion. CARDIOVASCULAR: Denies chest pain. RESPIRATORY: Difficulty breathing GASTROINTESTINAL: Denies abdominal pain. Denies nausea, vomiting, or diarrhea. Denies constipation. Last BM: GENITOURINARY: Denies difficulty urinating, painful urination, burning, frequency, or blood in urine. MUSCULOSKELETAL: Denies neck or back pain or joint pain or swelling. SKIN: Denies rash or skin lesions. NEUROLOGICAL: Denies altered mental status or loss of consciousness. Denies headache. Denies weakness or paralysis or loss of use of either side. Denies problems with gait or speech. Denies sensory or motor loss. ALL OTHER SYSTEMS REVIEWED AND NEGATIVE. Physical Exam - Vital signs Vitals: Pulse Ox 95 11/21/16 01:32 - Notes Notes: General Appearance: Thin and cachectic, alert, cooperative, moderate acute distress, no obvious discomfort. Vitals: reviewed, See vital signs table. Head: no swelling or tenderness to the head Eyes: PERRL, EOMI, Conjuctiva clear Mouth: No decreasd moisture Throat: No tonsillar inflammation, No airway obstruction, No lymphadenopathy Neck: Supple, no neck tenderness, No thyromegaly Lungs: No wheezing, No rales, No rhonci, No accessory muscle use, poor bilateral air exchange bilaterally. Heart: Tachycardic rate, Regular rythm, No murmur, no rub Abdomen: Normal BS, soft, No rigidity, mild diffuse abdominal tenderness, No guarding, no rebound, no abdominal masses, no organomegaly Extremities: strength 5/5 in all extremities, good pulses in all extremities, generalized muscle aches and tenderness to palpation of muscles of all extremities., no edema. Skin: warm, dry, appropriate color, no rash Neuro: speech clear, oriented x 3, normal affect, responds appropriately to questions. Course - Re-evaluation Re-evalutation: 11/21/16 04:50 Patient has large improvement in her lung auscultation. She still has some tachypnea.She still has some tachycardia. I will give another DuoNeb treatment. 11/21/16 07:40 Patient's Gerardo status continues to improve; however, still require some supplemental oxygen. I have been able to titrate her down to 2 L. She still has mild tachypnea. She does the white count 28,000. She is acidotic and her VBG but her CO2 is not that concerning high. I did reevaluate her again and she continues to have just, muscle aches all over. She does not have any really focality to her pain. Clinically she looks much improved and that her breathing is much improved and she is no longer near is tachypneic as she was before and she is not working as hard to breathe. I spoke with the hospitalist who agrees to admit the patient. Dictation of this chart was performed using voice recognition software; therefore, there may be some unintended grammatical errors. - Vital Signs Vital signs: Temp Pulse Resp BP Pulse Ox 98.1 F 25 H 135/84 H 98 11/21/16 06:25 11/21/16 07:01 11/21/16 07:01 11/21/16 07:01 - Laboratory Result Diagrams: 11/21/16 02:15 02/23/17 02:15 Laboratory results interpreted by me: 11/21/16 11/21/16 11/21/16 02:15 02:15 04:50 WBC 28.5 H MCHC 31.6 L RDW 15.7 H Seg Neutrophils % 93.0 H Seg Neuts % (Manual) 92 H Lymphocytes % 1.8 L Lymphocytes % (Manual) 2 L Metamyelocytes % 1 H Absolute Neutrophils 26.5 H Abs Neuts (Manual) 28.0 H Abs Monocytes (Manual) 1.5 H VBG pH 7.27 L Creatinine 0.33 L Glucose 263 H AST 67 H ALT 68 H Creatine Kinase 21 L - EKG Interpretation by Me Additional EKG results interpreted by me: 11/21/16 02:17 EKG is reviewed and interpreted by me. EKG shows what appears be sinus tachycardia with rate of [address] segment elevation. Mild ST segment depression in lateral precordial leads. NM interval, QRS duration, QTC intervals are within normal range. Old EKG for comparison is from 10/10/2016. 11/21/16 02:18 11/21/16 02:18 Discharge - Discharge Clinical Impression: COPD exacerbation, Metabolic acidosis Leukocytosis Qualifiers: Leukocytosis type: unspecified Qualified Code(s): D72.829 - Elevated white blood cell count, unspecified Condition: Stable Disposition: ADMITTED INPATIENT Admitting Provider: Hospitalist Unit Admitted: Telemetry
[2016-11-21] MEDS ORDERED: METHYLPREDNISOLONE INJ 125 MG/2 ML SDV IV ONE (02:22)
[2016-11-21] MEDS ORDERED: IPRATROPIUM/ALBUTEROL 0.5-2.5 MG/3 ML AMPUL NEB ONE ×2 (02:22→04:51)
[2016-11-21] MEDS: MAGNESIUM SULFATE/D5W 100 ML IV SCH ×2 (02:37→03:33)
[2016-11-21 02:53] LABS: ALANINE AMINOTRANSFERASE 68 U/L (9-52); ALBUMIN 3.7 g/dL (3.5-5.0); ALKALINE PHOSPHATASE 106 U/L (38-126); ANION GAP 10 (5-19); ASPARTATE AMINO TRANSFERASE 67 U/L (14-36); BILIRUBIN,TOTAL 0.7 mg/dL (0.2-1.3); BLOOD UREA NITROGEN 16 mg/dL (7-20); CALCIUM 9.9 mg/dL (8.4-10.2); CARBON DIOXIDE 30 mmol/L (22-30); CHLORIDE 101 mmol/L (98-107); CREATINE KINASE 21 U/L (30-135); CREATININE RESULT 0.33 mg/dL (0.52-1.25); GLUCOSE 263 mg/dL (75-110); POTASSIUM 4.4 mmol/L (3.6-5.0); SODIUM 140.8 mmol/L (137-145); TOTAL PROTEIN 6.3 g/dL (6.3-8.2)
[2016-11-21 03:19] LABS: BASOPHILS % (MANUAL) 0 % (0-2); EOSINOPHILS % (MANUAL) 0 % (0-6); LYMPHOCYTES % (MANUAL) 2 % (13-45); TOTAL CELLS COUNTED 100
[2016-11-21 03:22] LABS: ANISOCYTOSIS SLIGHT; BURR CELLS SLIGHT; OVALOCYTES SLIGHT; POIKILOCYTOSIS SLIGHT; POLYCHROMASIA SLIGHT; TEAR DROP CELLS SLIGHT; TOXIC GRANULATION SLIGHT; TOXIC VACUOLATION PRESENT
[2016-11-21 03:24] LABS: ABSOLUTE BASOPHILS # (AUTO) 0.1 10^3/uL (0.0-0.2); ABSOLUTE LYMPHOCYTES (AUTO) 0.5 10^3/uL (0.5-4.7); ABSOLUTE MONOCYTES (AUTO) 1.4 10^3/uL (0.1-1.4); ABSOLUTE NEUT (AUTO) 26.5 10^3/uL (1.7-8.2); BASOPHILS % (AUTO) 0.3 % (0-2); HEMATOCRIT 42.5 % (36.0-47.0); HEMOGLOBIN 13.4 g/dL (12.0-15.5); HGB HCT DIFFERENCE -2.3; LYMPHOCYTES % (AUTO) 1.8 % (13-45); MEAN CORPUSCULAR HEMOGLOBIN 30.3 pg (27.0-33.4); MEAN CORPUSCULAR HGB CONC 31.6 g/dL (32.0-36.0); MEAN CORPUSCULAR VOLUME 96 fl (80-97); MONOCYTES % (AUTO) 4.9 % (3-13); RED BLOOD COUNT 4.44 10^6/uL (3.72-5.28); RED CELL DISTRIBUTION WIDTH 15.7 % (11.5-14.0)
[2016-11-21 03:26] LABS: WHITE BLOOD COUNT 28.5 10^3/uL (4.0-10.5)
[2016-11-21 03:31] LABS: CREATINE KINASE MB 1.36 ng/mL (<4.55)
[2016-11-21 03:34] LABS: TROPONIN I 0.046 ng/mL
[2016-11-21] MEDS ORDERED: LEVOFLOXACIN 750 MG/D5W RTU 150 ML IV ONE (04:17)
[2016-11-21 05:05] LABS: VENOUS BLOOD BASE EXCESS -2.6 mmol/L; VENOUS BLOOD PCO2 55.6 mmHg (35-63); VENOUS BLOOD PH 7.27 (7.30-7.42)
--- NOTE | 2016-11-21 08:15 | EKG REPORT ---
SEVERITY:- ABNORMAL ECG - ECTOPIC ATRIAL TACHYCARDIA PROBABLE INFERIOR INFARCT, OLD ANTEROLATERAL INFARCT, AGE INDETERMINATE : Confirmed by: Sherin Crowder MD 21-Nov-2016 08:15:01
[2016-11-21 09:22] LABS: APPEARANCE,URINE CLEAR; BILIRUBIN,URINE NEGATIVE (NEGATIVE); GLUCOSE, URINE 50 mg/dL (NEGATIVE); KETONES,URINE NEGATIVE (NEGATIVE); LEUKOCYTE ESTERASE,URINE NEGATIVE (NEGATIVE); NITRITE,URINE NEGATIVE (NEGATIVE); PROTEIN,URINE 30 mg/dL (NEGATIVE); URINE SPECIFIC GRAVITY 1.026; UROBILINOGEN,URINE NEGATIVE mg/dL (<2.0)
[2016-11-21] MEDS: IPRATROPIUM/ALBUTEROL 0.5-2.5 MG/3 ML AMPUL NEB PRN (13:31)
[2016-11-21] MEDS ORDERED: ENOXAPARIN SODIUM INJ 30 MG/0.3 ML DISP.SYRIN SUBCUT ONE (14:00)
[2016-11-21 14:41] LABS: CREATINE KINASE MB 2.78 ng/mL (<4.55)
[2016-11-21 14:44] LABS: TROPONIN I 0.157 ng/mL
[2016-11-21] MEDS: METHYLPREDNISOLONE INJ 125 MG/2 ML SDV IV SCH ×2 (14:59→23:22)
[2016-11-21] MEDS: CEFTRIAXONE 1 GM/D5W RTU 1 GM/50 ML RTUPB IV SCH (14:59)
[2016-11-21 19:59] LABS: CREATINE KINASE MB 2.36 ng/mL (<4.55); TROPONIN I 0.11 ng/mL
--- NOTE | 2016-11-21 20:26 | PDOC H&P ---
History of Present Illness Admission Date/PCP: 11/21/16 12:48 LESLEY ANDINO MD History of Present Illness: GEORGIA YUAN is a 71 year old female, patient's condition is very poor. She has very severe COPD, hypertension, gout, rheumatoid arthritis, severe debilitation , contractured extremities,Scoliosis and she is full code. I recently started seeing her in the retirement. She was recently admitted and discharged from this hospital on 10/14/2016 and she presently resides in the retirement at [place]. She was transferred to emergency room last night because of shortness of breath, in the emergency room she was evaluated. Chest x-ray was done that was no acute infiltrate but it was consistent with COPD with flattened diaphragm. I recently saw in the retirement last Friday and she was prescribed Levaquin antibiotic, at the time, she had a chest x-ray done that suggest an infiltrate. Patient overall physical condition is very poor.She is extremely wasted the body mass index is 15, she can hardly finish a sentence for lack of energy. It seems that patient is prednisone dependent and part of the etiology of the leukocytosis could be from the prednisone. It is interesting that despite being on prednisone, Patient is still wheezing and short of breath, we will transition to IV Solu-Medrol, patient's CODE STATUS needs to be addressed. She is extremely debilitated, the extremities are wasted with no muscle mass Past Medical History Cardiac Medical History: Reports: Hypertension Pulmonary Medical History: Reports: Chronic Obstructive Pulmonary Disease (COPD) GI Medical History: Reports: Gastroesophageal Reflux Disease Musculoskeltal Medical History: Reports: Arthritis - Rheumatoid arthritis, osteoporosis, Gout Past Surgical History Past Surgical History: Reports: Other - Patient denies any recent operations. Social History Smoking Status: Former Smoker Frequency of Alcohol Use: None Hx Recreational Drug Use: No Drugs: None Hx Prescription Drug Abuse: No - Advance Directive Resuscitation Status: Full Code Family History Family History: None Parental Family History Reviewed: Yes Children Family History Reviewed: Yes Sibling(s) Family History Reviewed.: Yes Medication/Allergy Home Medications: Acetaminophen [Tylenol 325 mg Tablet] 650 mg PO Q6 11/21/16 Budesonide/Formoterol Fumarate [Symbicort HFA 160-4.5 mcg Inhaler 6 gm] 2 puff IH BID 11/21/16 Carvedilol [Coreg 6.25 mg Tablet] 6.25 mg PO Q12 11/21/16 Docusate Sodium [Colace 100 mg Capsule] 100 mg PO BID 11/21/16 Fluticasone Propionate [Flonase Nasal [place] 50 Mcg/[place]roy 16 gm] 1 spray NASL BID 11/21/16 Fluticasone/Salmeterol [Advair 250-50 Diskus 14 Dose/Diskus] 1 puff IH BID 11/21 Furosemide [Lasix] 20 mg PO DAILY 11/21/16 Hydrocodone/Acetaminophen [Hydrocodon-Acetaminophn 10-325] 1 tab PO Q6HP PRN Ipratropium [place] [Atrovent 0.02% Neb 0.5 mg/2.5 ml Ampul] 0.5 mg NEB Q6 11/21 Levalbuterol HCl [Xopenex Neb 1.25 mg/3 ml Ampul] 1.25 mg NEB Q2HP PRN 11/21/16 Levalbuterol HCl [Xopenex Neb 1.25 mg/3 ml Ampul] 1.25 mg PO Q6 11/21/16 Lorazepam [Ativan 0.5 mg Tablet] 0.5 mg PO Q8HP PRN 11/21/16 Losartan Potassium [Cozaar 100 mg Tablet] 100 mg PO QHS 11/21/16 Omeprazole 40 mg PO DAILY 11/21/16 Pnv No.122/Iron/Folic Acid [ Multi Tablet] 1 tab PO DAILY 11/21/16 Polyethylene Glycol 3350 [Miralax Powder 17 gm/Packet] 17 gm PO DAILY 11/21/16 Prednisone [Deltasone 10 mg Tablet] 10 mg PO BID 11/21/16 Tizanidine HCl [Zanaflex] 2 mg PO Q8HP PRN 11/21/16 Allergies/Adverse Reactions: No Known Allergies Allergy (Verified 11/21/16 05:26) Review of Systems Constitutional: PRESENT: anorexia Cardiovascular: PRESENT: dyspnea on exertion Gastrointestinal: PRESENT: nausea Genitourinary: PRESENT: dysuria Neurological: PRESENT: abnormal gait Physical Exam Vital Signs: Temp Pulse Resp BP Pulse Ox 98.3 F 100 18 150/79 H 100 11/21/16 15:45 11/21/16 18:00 11/21/16 18:00 11/21/16 15:45 11/21/16 18:00 Intake & Output 11/20/16 11/21/16 11/22/16 06:59 06:59 06:59 Weight 34.3 kg General appearance: PRESENT: severe distress Eye exam: PRESENT: PERRLA Respiratory exam: PRESENT: retraction, tachypnea, wheezes Cardiovascular exam: PRESENT: +S1, +S2 GI/Abdominal exam: PRESENT: soft Extremities exam: PRESENT: other - Severe muscle wasting with contractures Musculoskeletal exam: PRESENT: deformity Neurological exam: PRESENT: altered Results Laboratory Results: 11/21/16 11/21/16 13:37 19:15 CK-MB (CK-2) 2.78 2.36 Troponin I 0.157 0.110 Impressions: Chest X-Ray 11/21/16 02:26 IMPRESSION: COPD. NO ACUTE RADIOGRAPHIC FINDING IN THE CHEST. Assessment & Plan - Diagnosis (1) Acute hypercapnic respiratory failure Is this a current diagnosis for this admission?: YesPlan: She was admitted and started on intravenous Solu-Medrol and bronchodilators every 4 hours as needed. As I indicated patient's condition is very poor and I really need to discuss with patient's family about CODE STATUS (2) COPD exacerbation Is this a current diagnosis for this admission?: Yes (3) Undernutrition Is this a current diagnosis for this admission?: Yes (4) Protein-calorie undernutrition Is this a current diagnosis for this admission?: Yes (5) Debility, unspecified Is this a current diagnosis for this admission?: Yes (6) Hypertension Qualifiers: Hypertension type: essential hypertension Qualified Code(s): I10 - Essential (primary) hypertension Is this a current diagnosis for this admission?: Yes
[2016-11-22 01:44] LABS: CREATINE KINASE MB 1.95 ng/mL (<4.55); TROPONIN I 0.084 ng/mL
[2016-11-22 04:48] LABS: HEMATOCRIT 39.7 % (36.0-47.0); HEMOGLOBIN 12.9 g/dL (12.0-15.5); MEAN CORPUSCULAR HEMOGLOBIN 30.3 pg (27.0-33.4); MEAN CORPUSCULAR HGB CONC 32.4 g/dL (32.0-36.0); MEAN CORPUSCULAR VOLUME 94 fl (80-97); RED BLOOD COUNT 4.24 10^6/uL (3.72-5.28); RED CELL DISTRIBUTION WIDTH 15.1 % (11.5-14.0); WHITE BLOOD COUNT 13.6 10^3/uL (4.0-10.5)
[2016-11-22] MEDS: LEVOFLOXACIN 750 MG/D5W RTU 750 MG/150 ML RTUPB IV SCH (06:01)
[2016-11-22] MEDS: METHYLPREDNISOLONE INJ 125 MG/2 ML SDV IV SCH ×3 (06:02→22:58)
[2016-11-22] MEDS ORDERED: ACETAMINOPHEN 325 MG TABLET PO ONE (09:15)
[2016-11-22] MEDS: IPRATROPIUM/ALBUTEROL 0.5-2.5 MG/3 ML AMPUL NEB PRN (09:16)
[2016-11-22] MEDS ORDERED: LOSARTAN POTASSIUM 50 MG TABLET PO ONE (09:30)
[2016-11-22] MEDS: BUDESONIDE/FORMOTEROL 160-4.5 MCG 60 PUFF/6 GM MDI IH SCH ×2 (11:09→23:01)
[2016-11-22] MEDS: HYDROCODONE/ACETAMINOPHEN 10-325 MG TABLET PO PRN ×2 (11:09→20:36)
[2016-11-22] MEDS: ENOXAPARIN SODIUM INJ 30 MG/0.3 ML DISP.SYRIN SUBCUT SCH (11:09)
[2016-11-22] MEDS: ACETAMINOPHEN 325 MG TABLET PO SCH ×2 (13:20→19:06)
[2016-11-22] MEDS: CEFTRIAXONE 1 GM/D5W RTU 1 GM/50 ML RTUPB IV SCH (14:14)
--- NOTE | 2016-11-22 17:09 | PDOC PROGRESS REPORT ---
Subjective Progress Note for:: 11/22/16 Subjective:: Patient was admitted yesterday for acute COPD exacerbation and she was started on intravenous Solu-Medrol, she seems to be responding to the medication. She is much more bedside today, she has less retraction of the chest Physical Exam Vital Signs: Temp Pulse Resp BP Pulse Ox 98.5 F 103 H 18 149/78 H 100 11/22/16 12:13 11/22/16 14:00 11/22/16 12:13 11/22/16 12:13 11/22/16 12:13 Intake & Output 11/21/16 11/22/16 11/23/16 06:59 06:59 06:59 Intake Total 200 Balance 200 Weight 34.3 kg General appearance: PRESENT: no acute distress Eye exam: PRESENT: PERRLA Respiratory exam: PRESENT: wheezes Cardiovascular exam: PRESENT: +S1, +S2 Results Laboratory Results: 11/22/16 04:38 11/22/16 04:38 WBC 13.6 H RBC 4.24 Hgb 12.9 Hct 39.7 MCV 94 MCH 30.3 MCHC 32.4 RDW 15.1 H Plt Count 169 11/21/16 11/21/16 11/22/16 13:37 19:15 01:11 CK-MB (CK-2) 2.78 2.36 1.95 Troponin I 0.157 0.110 0.084 Impressions: Chest X-Ray 11/21/16 02:26 IMPRESSION: COPD. NO ACUTE RADIOGRAPHIC FINDING IN THE CHEST. Assessment & Plan - Diagnosis (1) Acute hypercapnic respiratory failure Is this a current diagnosis for this admission?: YesPlan: Continue IV antibiotic and Solu-Medrol (2) COPD exacerbation Is this a current diagnosis for this admission?: Yes (3) Undernutrition Is this a current diagnosis for this admission?: Yes (4) Protein-calorie undernutrition Is this a current diagnosis for this admission?: Yes (5) Debility, unspecified Is this a current diagnosis for this admission?: Yes (6) Hypertension Qualifiers: Hypertension type: essential hypertension Qualified Code(s): I10 - Essential (primary) hypertension Is this a current diagnosis for this admission?: Yes
[2016-11-22] MEDS: LOSARTAN POTASSIUM 50 MG TABLET PO SCH (22:58)
[2016-11-23] MEDS: ACETAMINOPHEN 325 MG TABLET PO SCH ×4 (00:48→18:34)
[2016-11-23] MEDS: METHYLPREDNISOLONE INJ 125 MG/2 ML SDV IV SCH ×3 (06:58→22:11)
[2016-11-23] MEDS: LANSOPRAZOLE 30 MG TAB.RAP.DR PO SCH (07:03)
[2016-11-23] MEDS: LEVOFLOXACIN 750 MG/D5W RTU 750 MG/150 ML RTUPB IV SCH (07:27)
[2016-11-23 09:49] LABS: HEMATOCRIT 37.3 % (36.0-47.0); HGB HCT DIFFERENCE -1.3; MEAN CORPUSCULAR HEMOGLOBIN 30.5 pg (27.0-33.4); MEAN CORPUSCULAR HGB CONC 32.1 g/dL (32.0-36.0); MEAN CORPUSCULAR VOLUME 95 fl (80-97); RED BLOOD COUNT 3.92 10^6/uL (3.72-5.28); RED CELL DISTRIBUTION WIDTH 15.3 % (11.5-14.0); WHITE BLOOD COUNT 16.7 10^3/uL (4.0-10.5)
--- NOTE | 2016-11-23 11:15 | PDOC PROGRESS REPORT ---
Subjective Progress Note for:: 11/23/16 Subjective:: Patient is doing fair denied any chest pain had any shortness of the breath. She is still feeling very weak and poor appetite Physical Exam Vital Signs: Temp Pulse Resp BP Pulse Ox 98.0 F 81 16 153/76 H 100 11/23/16 07:50 11/23/16 07:50 11/23/16 07:50 11/23/16 07:50 11/23/16 07:50 Intake & Output 11/22/16 11/23/16 11/24/16 06:59 06:59 06:59 Intake Total 200 806 Balance 200 806 Weight 34.3 kg General appearance: PRESENT: no acute distress, other Head exam: PRESENT: normocephalic Eye exam: PRESENT: PERRLA Neck exam: PRESENT: full ROM Respiratory exam: PRESENT: clear to auscultation ivan Cardiovascular exam: PRESENT: +S1, +S2 GI/Abdominal exam: PRESENT: normal bowel sounds, soft Extremities exam: PRESENT: other Additional comments: The contracture in the deformity from the rheumatoid arthritis Neurological exam: PRESENT: alert, awake, oriented to person Psychiatric exam: PRESENT: anxious Results Laboratory Results: 11/23/16 07:18 11/23/16 07:18 WBC 16.7 H RBC 3.92 Hgb 12.0 Hct 37.3 MCV 95 MCH 30.5 MCHC 32.1 RDW 15.3 H Plt Count 170 11/21/16 11/21/16 11/22/16 13:37 19:15 01:11 CK-MB (CK-2) 2.78 2.36 1.95 Troponin I 0.157 0.110 0.084 Impressions: Chest X-Ray 11/21/16 02:26 IMPRESSION: COPD. NO ACUTE RADIOGRAPHIC FINDING IN THE CHEST. Assessment & Plan - Diagnosis (1) Acute hypercapnic respiratory failure Is this a current diagnosis for this admission?: YesPlan: Continuous respiratory treatments (2) COPD exacerbation Is this a current diagnosis for this admission?: YesPlan: current medication (3) Leukocytosis Qualifiers: Leukocytosis type: unspecified Qualified Code(s): D72.829 - Elevated white blood cell count, unspecified Is this a current diagnosis for this admission?: YesPlan: Continuous IV antibiotic (4) Protein-calorie undernutrition Is this a current diagnosis for this admission?: YesPlan: Increase more by mouth intake - Time Time Spent with patient: 15-24 minutes Medications reviewed and adjusted accordingly: Yes Anticipated discharge: Other - Inpatient Certification Medical Necessity: Need Close Monitoring Due to Risk of Patient Decompensation, Need for IV Antibiotics Post Hospital Care: D/C Bulldozer Engineer Documentation - Plan Summary Plan Summary: Continuous IV antibiotic recently. The blood work in the morning
[2016-11-23] MEDS: BUDESONIDE/FORMOTEROL 160-4.5 MCG 60 PUFF/6 GM MDI IH SCH ×2 (12:29→18:37)
[2016-11-23] MEDS: ENOXAPARIN SODIUM INJ 30 MG/0.3 ML DISP.SYRIN SUBCUT SCH (12:29)
[2016-11-23] MEDS: CEFTRIAXONE 1 GM/D5W RTU 1 GM/50 ML RTUPB IV SCH ×2 (15:10→16:40)
[2016-11-23] MEDS: HYDROCODONE/ACETAMINOPHEN 10-325 MG TABLET PO PRN (15:12)
[2016-11-23] MEDS: LOSARTAN POTASSIUM 50 MG TABLET PO SCH (22:11)
[2016-11-24] MEDS: ACETAMINOPHEN 325 MG TABLET PO SCH ×5 (00:42→23:39)
[2016-11-24] MEDS: METHYLPREDNISOLONE INJ 125 MG/2 ML SDV IV SCH ×3 (05:21→21:53)
[2016-11-24] MEDS: LEVOFLOXACIN 750 MG/D5W RTU 750 MG/150 ML RTUPB IV SCH (05:23)
[2016-11-24] MEDS: LANSOPRAZOLE 30 MG TAB.RAP.DR PO SCH (05:27)
[2016-11-24 06:30] LABS: HEMATOCRIT 37.5 % (36.0-47.0); HEMOGLOBIN 12.2 g/dL (12.0-15.5); HGB HCT DIFFERENCE -0.9; MEAN CORPUSCULAR HEMOGLOBIN 30.4 pg (27.0-33.4); MEAN CORPUSCULAR HGB CONC 32.4 g/dL (32.0-36.0); MEAN CORPUSCULAR VOLUME 94 fl (80-97); RED BLOOD COUNT 4.01 10^6/uL (3.72-5.28); RED CELL DISTRIBUTION WIDTH 15.4 % (11.5-14.0); WHITE BLOOD COUNT 15.2 10^3/uL (4.0-10.5)
[2016-11-24 06:31] LABS: ANION GAP 8 (5-19); BLOOD UREA NITROGEN 28 mg/dL (7-20); CALCIUM 10.7 mg/dL (8.4-10.2); CARBON DIOXIDE 31 mmol/L (22-30); CHLORIDE 99 mmol/L (98-107); CREATININE RESULT 0.25 mg/dL (0.52-1.25); GLUCOSE 176 mg/dL (75-110); POTASSIUM 5.2 mmol/L (3.6-5.0); SODIUM 137.9 mmol/L (137-145)
[2016-11-24] MEDS: IPRATROPIUM/ALBUTEROL 0.5-2.5 MG/3 ML AMPUL NEB PRN (07:49)
[2016-11-24] MEDS: BUDESONIDE/FORMOTEROL 160-4.5 MCG 60 PUFF/6 GM MDI IH SCH ×2 (10:21→17:57)
[2016-11-24] MEDS: ENOXAPARIN SODIUM INJ 30 MG/0.3 ML DISP.SYRIN SUBCUT SCH (10:31)
--- NOTE | 2016-11-24 11:35 | PDOC PROGRESS REPORT ---
Subjective Progress Note for:: 11/24/16 Subjective:: Patient is doing fair denied any chest pain had any shortness of the breath. She is still feeling very weak and poor appetite Physical Exam Vital Signs: Temp Pulse Resp BP Pulse Ox 98.1 F 97 16 149/70 H 100 11/24/16 04:22 11/24/16 07:49 11/24/16 07:49 11/24/16 04:22 11/24/16 07:49 Intake & Output 11/23/16 11/24/16 11/25/16 06:59 06:59 06:59 Intake Total 1000 Balance 1000 Weight 36.2 kg General appearance: PRESENT: no acute distress Head exam: PRESENT: normocephalic Eye exam: PRESENT: PERRLA Mouth exam: PRESENT: neck supple Respiratory exam: PRESENT: decreased breath sounds Cardiovascular exam: PRESENT: +S1, +S2 GI/Abdominal exam: PRESENT: normal bowel sounds, soft. ABSENT: tenderness Extremities exam: PRESENT: other Additional comments: Contradiction from the rheumatoid arthritis Neurological exam: PRESENT: alert, awake, oriented to person, oriented to place Psychiatric exam: PRESENT: anxious Results Laboratory Results: 11/24/16 06:00 11/24/16 06:00 11/24/16 11/24/16 06:00 06:00 WBC 15.2 H RBC 4.01 Hgb 12.2 Hct 37.5 MCV 94 MCH 30.4 MCHC 32.4 RDW 15.4 H Plt Count 148 L Sodium 137.9 Potassium 5.2 H Chloride 99 Carbon Dioxide 31 H Anion Gap 8 BUN 28 H Creatinine 0.25 L Est GFR ( Amer) > 60 Est GFR (Non-Af Amer) > 60 Glucose 176 H Calcium 10.7 H Impressions: Chest X-Ray 11/23/16 13:40 IMPRESSION: COPD. NO ACUTE RADIOGRAPHIC FINDING IN THE CHEST. Assessment & Plan - Diagnosis (1) Acute hypercapnic respiratory failure Is this a current diagnosis for this admission?: YesPlan: Continuous respiratory treatments (2) COPD exacerbation Is this a current diagnosis for this admission?: YesPlan: current medication (3) Leukocytosis Qualifiers: Leukocytosis type: unspecified Qualified Code(s): D72.829 - Elevated white blood cell count, unspecified Is this a current diagnosis for this admission?: YesPlan: Continuous IV antibiotic (4) Protein-calorie undernutrition Is this a current diagnosis for this admission?: YesPlan: Increase more by mouth intake - Time Time Spent with patient: 15-24 minutes Medications reviewed and adjusted accordingly: Yes Anticipated discharge: Other Within: Other - Inpatient Certification Medical Necessity: Need for IV Antibiotics Post Hospital Care: D/C Manufacturing Engineer Paint Documentation - Plan Summary Plan Summary: Add the Mucinex continues a nebulizer treatment and continues to flutter treatment
[2016-11-24] MEDS ORDERED: GUAIFENESIN 600 MG TABLET.SA PO ONE (12:00)
[2016-11-24] MEDS: GUAIFENESIN 600 MG TABLET.SA PO SCH (21:53)
[2016-11-24] MEDS: LOSARTAN POTASSIUM 50 MG TABLET PO SCH (21:53)
[2016-11-25] MEDS: LANSOPRAZOLE 30 MG TAB.RAP.DR PO SCH (06:13)
[2016-11-25] MEDS: METHYLPREDNISOLONE INJ 125 MG/2 ML SDV IV SCH ×3 (06:13→22:47)
[2016-11-25] MEDS: ACETAMINOPHEN 325 MG TABLET PO SCH ×4 (06:13→23:50)
[2016-11-25] MEDS: LEVOFLOXACIN 750 MG/D5W RTU 750 MG/150 ML RTUPB IV SCH (06:13)
[2016-11-25 07:03] LABS: HEMATOCRIT 35.2 % (36.0-47.0); HEMOGLOBIN 11.4 g/dL (12.0-15.5); MEAN CORPUSCULAR HEMOGLOBIN 30.4 pg (27.0-33.4); MEAN CORPUSCULAR HGB CONC 32.5 g/dL (32.0-36.0); MEAN CORPUSCULAR VOLUME 94 fl (80-97); RED BLOOD COUNT 3.76 10^6/uL (3.72-5.28); WHITE BLOOD COUNT 12.8 10^3/uL (4.0-10.5)
[2016-11-25 07:13] LABS: ANION GAP 8 (5-19); BLOOD UREA NITROGEN 23 mg/dL (7-20); CALCIUM 10.6 mg/dL (8.4-10.2); CARBON DIOXIDE 30 mmol/L (22-30); CHLORIDE 99 mmol/L (98-107); CREATININE RESULT 0.29 mg/dL (0.52-1.25); GLUCOSE 152 mg/dL (75-110); POTASSIUM 4.3 mmol/L (3.6-5.0); SODIUM 137.1 mmol/L (137-145)
[2016-11-25 07:58] LABS: BASOPHILS % (MANUAL) 0 % (0-2); EOSINOPHILS % (MANUAL) 0 % (0-6); LYMPHOCYTES % (MANUAL) 0 % (13-45); TOTAL CELLS COUNTED 100
[2016-11-25 07:59] LABS: ANISOCYTOSIS SLIGHT
[2016-11-25] MEDS: ENOXAPARIN SODIUM INJ 30 MG/0.3 ML DISP.SYRIN SUBCUT SCH (08:39)
[2016-11-25] MEDS: BUDESONIDE/FORMOTEROL 160-4.5 MCG 60 PUFF/6 GM MDI IH SCH ×2 (10:05→17:19)
[2016-11-25] MEDS: GUAIFENESIN 600 MG TABLET.SA PO SCH ×2 (10:05→22:10)
[2016-11-25] MEDS: IPRATROPIUM/ALBUTEROL 0.5-2.5 MG/3 ML AMPUL NEB PRN (12:07)
[2016-11-25] MEDS: LOSARTAN POTASSIUM 50 MG TABLET PO SCH (22:10)
[2016-11-26] MEDS: HYDROCODONE/ACETAMINOPHEN 10-325 MG TABLET PO PRN ×2 (03:51→11:02)
[2016-11-26] MEDS: LANSOPRAZOLE 30 MG TAB.RAP.DR PO SCH (05:55)
[2016-11-26] MEDS: METHYLPREDNISOLONE INJ 125 MG/2 ML SDV IV SCH ×3 (05:55→23:29)
[2016-11-26] MEDS: ACETAMINOPHEN 325 MG TABLET PO SCH ×4 (05:56→23:29)
[2016-11-26 07:41] LABS: ANION GAP 7 (5-19); BLOOD UREA NITROGEN 20 mg/dL (7-20); CALCIUM 10.7 mg/dL (8.4-10.2); CARBON DIOXIDE 34 mmol/L (22-30); CHLORIDE 97 mmol/L (98-107); CREATININE RESULT 0.23 mg/dL (0.52-1.25); GLUCOSE 140 mg/dL (75-110); POTASSIUM 4.2 mmol/L (3.6-5.0); SODIUM 137.5 mmol/L (137-145)
[2016-11-26] MEDS: BUDESONIDE/FORMOTEROL 160-4.5 MCG 60 PUFF/6 GM MDI IH SCH ×2 (10:50→20:00)
[2016-11-26] MEDS: GUAIFENESIN 600 MG TABLET.SA PO SCH ×2 (10:50→23:28)
[2016-11-26] MEDS: ENOXAPARIN SODIUM INJ 30 MG/0.3 ML DISP.SYRIN SUBCUT SCH (10:50)
[2016-11-26] MEDS: LEVOFLOXACIN 750 MG TABLET PO SCH (10:50)
[2016-11-26] MEDS: CEFTRIAXONE 1 GM/D5W RTU 1 GM/50 ML RTUPB IV SCH (13:34)
[2016-11-26] MEDS: LORAZEPAM 0.5 MG TABLET PO PRN (15:07)
--- NOTE | 2016-11-26 18:59 | PDOC PROGRESS REPORT ---
Subjective Progress Note for:: 11/25/16 Subjective:: Patient was seen by the bedside, she is on IV Solu-Medrol Physical Exam Vital Signs: Temp Pulse Resp BP Pulse Ox 97.9 F 98 20 152/72 H 100 11/25/16 16:08 11/25/16 16:36 11/25/16 16:36 11/25/16 16:08 11/25/16 16:36 Intake & Output 11/24/16 11/25/16 11/26/16 06:59 06:59 06:59 Intake Total 1000 1230 480 Balance 1000 1230 480 Weight 36.2 kg 35.8 kg General appearance: PRESENT: mild distress Eye exam: PRESENT: PERRLA Respiratory exam: PRESENT: decreased breath sounds Cardiovascular exam: PRESENT: +S1, +S2 GI/Abdominal exam: PRESENT: soft Results Laboratory Results: 11/25/16 06:18 11/25/16 06:18 11/25/16 11/25/16 06:18 06:18 WBC 12.8 H RBC 3.76 Hgb 11.4 L Hct 35.2 L MCV 94 MCH 30.4 MCHC 32.5 RDW 15.0 H Plt Count 145 L Seg Neutrophils % Not Reportable Lymphocytes % Not Reportable Monocytes % Not Reportable Eosinophils % Not Reportable Basophils % Not Reportable Absolute Neutrophils Not Reportable Absolute Lymphocytes Not Reportable Absolute Monocytes Not Reportable Absolute Eosinophils Not Reportable Absolute Basophils Not Reportable Sodium 137.1 Potassium 4.3 Chloride 99 Carbon Dioxide 30 Anion Gap 8 BUN 23 H Creatinine 0.29 L Est GFR ( Amer) > 60 Est GFR (Non-Af Amer) > 60 Glucose 152 H Calcium 10.6 H Impressions: Chest X-Ray 11/23/16 13:40 IMPRESSION: COPD. NO ACUTE RADIOGRAPHIC FINDING IN THE CHEST. Assessment & Plan - Diagnosis (1) Acute hypercapnic respiratory failure Is this a current diagnosis for this admission?: YesPlan: The Solu-Medrol dose to be reduced (2) COPD exacerbation Is this a current diagnosis for this admission?: Yes (3) Undernutrition Is this a current diagnosis for this admission?: Yes (4) Protein-calorie undernutrition Is this a current diagnosis for this admission?: Yes (5) Debility, unspecified Is this a current diagnosis for this admission?: Yes (6) Hypertension Qualifiers: Hypertension type: essential hypertension Qualified Code(s): I10 - Essential (primary) hypertension Is this a current diagnosis for this admission?: Yes
[2016-11-26] MEDS: LOSARTAN POTASSIUM 50 MG TABLET PO SCH (23:28)
[2016-11-27] MEDS: ACETAMINOPHEN 325 MG TABLET PO SCH ×4 (06:07→23:47)
[2016-11-27] MEDS: METHYLPREDNISOLONE INJ 125 MG/2 ML SDV IV SCH (06:08)
[2016-11-27] MEDS: LANSOPRAZOLE 30 MG TAB.RAP.DR PO SCH (06:08)
[2016-11-27] MEDS: LEVOFLOXACIN 750 MG TABLET PO SCH (08:15)
[2016-11-27] MEDS: HYDROCODONE/ACETAMINOPHEN 10-325 MG TABLET PO PRN ×2 (08:15→22:05)
[2016-11-27] MEDS: ENOXAPARIN SODIUM INJ 30 MG/0.3 ML DISP.SYRIN SUBCUT SCH (08:16)
[2016-11-27] MEDS: BUDESONIDE/FORMOTEROL 160-4.5 MCG 60 PUFF/6 GM MDI IH SCH ×2 (11:49→19:00)
[2016-11-27] MEDS: GUAIFENESIN 600 MG TABLET.SA PO SCH ×2 (11:50→22:05)
[2016-11-27] MEDS: LORAZEPAM 0.5 MG TABLET PO PRN (12:43)
--- NOTE | 2016-11-27 16:58 | PDOC PROGRESS REPORT ---
Subjective Progress Note for:: 11/26/16 Subjective:: Patient's condition remains poor, she is extremely wasted, Physical Exam Vital Signs: Temp Pulse Resp BP Pulse Ox 98.3 F 117 H 21 H 154/82 H 92 11/27/16 16:00 11/27/16 16:00 11/27/16 16:00 11/27/16 16:00 11/27/16 16:00 Intake & Output 11/26/16 11/27/16 11/28/16 06:59 06:59 06:59 Intake Total 1075 1545 477 Output Total 6 Balance 1075 1545 471 Weight 38.6 kg 38.4 kg General appearance: PRESENT: no acute distress Eye exam: PRESENT: PERRLA Respiratory exam: PRESENT: decreased breath sounds Cardiovascular exam: PRESENT: +S1, +S2 GI/Abdominal exam: PRESENT: soft Results Laboratory Results: 11/25/16 06:18 11/26/16 06:56 Impressions: Chest X-Ray 11/23/16 13:40 IMPRESSION: COPD. NO ACUTE RADIOGRAPHIC FINDING IN THE CHEST. Assessment & Plan - Diagnosis (1) Acute hypercapnic respiratory failure Is this a current diagnosis for this admission?: Yes (2) COPD exacerbation Is this a current diagnosis for this admission?: Yes (3) Undernutrition Is this a current diagnosis for this admission?: Yes (4) Protein-calorie undernutrition Is this a current diagnosis for this admission?: Yes (5) Debility, unspecified Is this a current diagnosis for this admission?: Yes (6) Hypertension Qualifiers: Hypertension type: essential hypertension Qualified Code(s): I10 - Essential (primary) hypertension Is this a current diagnosis for this admission?: Yes
--- NOTE | 2016-11-27 17:05 | PDOC PROGRESS REPORT ---
Subjective Progress Note for:: 11/27/16 Subjective:: Patient was seen by the bedside, I a long discussion about her code status, she wants to be a DO NOT RESUSCITATE. She does not want mechanical intubation and she does not want chest compression if she should develop cardiac arrest. Physical Exam Vital Signs: Temp Pulse Resp BP Pulse Ox 98.3 F 117 H 21 H 154/82 H 92 11/27/16 16:00 11/27/16 16:00 11/27/16 16:00 11/27/16 16:00 11/27/16 16:00 Intake & Output 11/26/16 11/27/16 11/28/16 06:59 06:59 06:59 Intake Total 1075 1545 477 Output Total 6 Balance 1075 1545 471 Weight 38.6 kg 38.4 kg General appearance: PRESENT: mild distress Eye exam: PRESENT: PERRLA Respiratory exam: PRESENT: decreased breath sounds. ABSENT: accessory muscle use, chest wall tenderness, clear to auscultation ivan, crackles, prolonged expiratory phas, rales, retraction, rhonchi, stridor, symmetrical, tachypnea, unlabored, wheezes, other Cardiovascular exam: PRESENT: +S1, +S2 GI/Abdominal exam: PRESENT: soft Extremities exam: PRESENT: other - There is significant muscular atrophy of the lower extremities. Neurological exam: PRESENT: alert, CN II-XII grossly intact Results Laboratory Results: 11/25/16 06:18 11/26/16 06:56 Impressions: Chest X-Ray 11/23/16 13:40 IMPRESSION: COPD. NO ACUTE RADIOGRAPHIC FINDING IN THE CHEST. Assessment & Plan - Diagnosis (1) Acute hypercapnic respiratory failure Is this a current diagnosis for this admission?: Yes (2) COPD exacerbation Is this a current diagnosis for this admission?: YesPlan: On auscultation of the chest, there is no diffuse wheeze, there is diminished breath sounds on both martin. Discontinue intravenous Solu-Medrol and transition to by mouth prednisone (3) Undernutrition Is this a current diagnosis for this admission?: Yes (4) Protein-calorie undernutrition Is this a current diagnosis for this admission?: Yes (5) Debility, unspecified Is this a current diagnosis for this admission?: Yes (6) Hypertension Qualifiers: Hypertension type: essential hypertension Qualified Code(s): I10 - Essential (primary) hypertension Is this a current diagnosis for this admission?: Yes
[2016-11-27] MEDS ORDERED: PREDNISONE 5 MG TABLET PO SCH (17:15)
[2016-11-27] MEDS ORDERED: PREDNISONE 20 MG TABLET PO ONE (18:00)
[2016-11-27] MEDS: CEFTRIAXONE 1 GM/D5W RTU 1 GM/50 ML RTUPB IV SCH (18:59)
[2016-11-27] MEDS: LOSARTAN POTASSIUM 50 MG TABLET PO SCH (22:04)
[2016-11-28] MEDS: LANSOPRAZOLE 30 MG TAB.RAP.DR PO SCH (06:08)
[2016-11-28] MEDS: ACETAMINOPHEN 325 MG TABLET PO SCH ×4 (06:08→23:17)
[2016-11-28] MEDS: LEVOFLOXACIN 750 MG TABLET PO SCH (07:57)
[2016-11-28] MEDS: ENOXAPARIN SODIUM INJ 30 MG/0.3 ML DISP.SYRIN SUBCUT SCH (08:23)
[2016-11-28] MEDS: BUDESONIDE/FORMOTEROL 160-4.5 MCG 60 PUFF/6 GM MDI IH SCH ×2 (10:23→17:38)
[2016-11-28] MEDS: PREDNISONE 20 MG TABLET PO SCH (10:23)
[2016-11-28] MEDS: GUAIFENESIN 600 MG TABLET.SA PO SCH ×2 (10:23→21:17)
[2016-11-28] MEDS ORDERED: AMLODIPINE BESYLATE 10 MG TABLET PO SCH (19:00)
--- NOTE | 2016-11-28 20:26 | PDOC PROGRESS REPORT ---
Subjective Progress Note for:: 11/28/16 Subjective:: Patient was seen by the bedside, the blood pressure is elevated at 160 systolic Physical Exam Vital Signs: Temp Pulse Resp BP Pulse Ox 98.5 F 100 14 163/71 H 99 11/28/16 16:44 11/28/16 16:44 11/28/16 16:44 11/28/16 16:44 11/28/16 16:44 Intake & Output 11/27/16 11/28/16 11/29/16 06:59 06:59 06:59 Intake Total 1545 627 572 Output Total 6 Balance 1545 621 572 Weight 38.4 kg 36.8 kg General appearance: PRESENT: mild distress Eye exam: PRESENT: PERRLA Respiratory exam: PRESENT: decreased breath sounds Cardiovascular exam: PRESENT: +S1, +S2 Results Laboratory Results: 11/25/16 06:18 11/26/16 06:56 Impressions: Chest X-Ray 11/23/16 13:40 IMPRESSION: COPD. NO ACUTE RADIOGRAPHIC FINDING IN THE CHEST. Chest CT 11/27/16 00:00 IMPRESSION: Obstructive lung disease. A tiny left pleural effusion is identified. There is some minimal increased density in the right posterior sulcus most consistent with atelectatic changes. Other findings as noted above Assessment & Plan - Diagnosis (1) Acute hypercapnic respiratory failure Is this a current diagnosis for this admission?: Yes (2) COPD exacerbation Is this a current diagnosis for this admission?: Yes (3) Undernutrition Is this a current diagnosis for this admission?: Yes (4) Protein-calorie undernutrition Is this a current diagnosis for this admission?: Yes (5) Debility, unspecified Is this a current diagnosis for this admission?: Yes (6) Hypertension Qualifiers: Hypertension type: essential hypertension Qualified Code(s): I10 - Essential (primary) hypertension Is this a current diagnosis for this admission?: YesPlan: Start Norvasc 10 mg p.o. daily
[2016-11-28] MEDS: LOSARTAN POTASSIUM 50 MG TABLET PO SCH (21:17)
[2016-11-29] MEDS: ACETAMINOPHEN 325 MG TABLET PO SCH ×3 (05:59→17:12)
[2016-11-29] MEDS: LANSOPRAZOLE 30 MG TAB.RAP.DR PO SCH (05:59)
[2016-11-29] MEDS: LEVOFLOXACIN 750 MG TABLET PO SCH (07:56)
[2016-11-29] MEDS: ENOXAPARIN SODIUM INJ 30 MG/0.3 ML DISP.SYRIN SUBCUT SCH (07:57)
[2016-11-29] MEDS: PREDNISONE 20 MG TABLET PO SCH (09:50)
[2016-11-29] MEDS: GUAIFENESIN 600 MG TABLET.SA PO SCH ×2 (09:51→21:16)
[2016-11-29] MEDS: BUDESONIDE/FORMOTEROL 160-4.5 MCG 60 PUFF/6 GM MDI IH SCH ×2 (09:51→17:13)
[2016-11-29] MEDS: LOSARTAN POTASSIUM 50 MG TABLET PO SCH (21:16)
[2016-11-30] MEDS: ACETAMINOPHEN 325 MG TABLET PO SCH ×5 (01:42→23:23)
[2016-11-30] MEDS: AMLODIPINE BESYLATE 10 MG TABLET PO SCH (06:44)
[2016-11-30] MEDS: LANSOPRAZOLE 30 MG TAB.RAP.DR PO SCH (06:44)
[2016-11-30] MEDS: ENOXAPARIN SODIUM INJ 30 MG/0.3 ML DISP.SYRIN SUBCUT SCH (08:34)
[2016-11-30] MEDS: LEVOFLOXACIN 750 MG TABLET PO SCH (08:34)
[2016-11-30] MEDS: GUAIFENESIN 600 MG TABLET.SA PO SCH ×2 (11:14→22:02)
[2016-11-30] MEDS: PREDNISONE 20 MG TABLET PO SCH (11:14)
[2016-11-30] MEDS: BUDESONIDE/FORMOTEROL 160-4.5 MCG 60 PUFF/6 GM MDI IH SCH ×2 (11:15→17:28)
--- NOTE | 2016-11-30 17:17 | PDOC PROGRESS REPORT ---
Subjective Progress Note for:: 11/29/16 Subjective:: Patient's condition is about the same she is bedbound, she has disabling rheumatoid arthritis Physical Exam Vital Signs: Temp Pulse Resp BP Pulse Ox 99.3 F 113 H 18 141/82 H 100 11/29/16 15:19 11/29/16 15:19 11/29/16 15:19 11/29/16 15:19 11/29/16 15:19 Intake & Output 11/28/16 11/29/16 11/30/16 06:59 06:59 06:59 Intake Total 627 997 599 Output Total 6 Balance 621 997 599 Weight 36.8 kg 35.8 kg General appearance: PRESENT: mild distress Eye exam: PRESENT: PERRLA Respiratory exam: PRESENT: decreased breath sounds Cardiovascular exam: PRESENT: +S1, +S2 GI/Abdominal exam: PRESENT: soft Results Laboratory Results: 11/25/16 06:18 11/26/16 06:56 Impressions: Chest X-Ray 11/23/16 13:40 IMPRESSION: COPD. NO ACUTE RADIOGRAPHIC FINDING IN THE CHEST. Chest CT 11/27/16 00:00 IMPRESSION: Obstructive lung disease. A tiny left pleural effusion is identified. There is some minimal increased density in the right posterior sulcus most consistent with atelectatic changes. Other findings as noted above Assessment & Plan - Diagnosis (1) Acute hypercapnic respiratory failure Is this a current diagnosis for this admission?: Yes (2) COPD exacerbation Is this a current diagnosis for this admission?: Yes (3) Undernutrition Is this a current diagnosis for this admission?: Yes (4) Protein-calorie undernutrition Is this a current diagnosis for this admission?: Yes (5) Debility, unspecified Is this a current diagnosis for this admission?: Yes (6) Hypertension Qualifiers: Hypertension type: essential hypertension Qualified Code(s): I10 - Essential (primary) hypertension Is this a current diagnosis for this admission?: Yes
--- NOTE | 2016-11-30 17:18 | PDOC PROGRESS REPORT ---
Subjective Progress Note for:: 11/30/16 Subjective:: Patient has a little pain is seems that she has achieved maximum inpatient benefit overall prognosis is very poor, she is extremely malnourished she may need to be transferred back to long-term probably tomorrow we need to discuss other options, hospice etc. Physical Exam Vital Signs: Temp Pulse Resp BP Pulse Ox 97.8 F 120 H 21 H 148/74 H 92 11/30/16 11:25 11/30/16 13:48 11/30/16 11:25 11/30/16 11:25 11/30/16 11:25 Intake & Output 11/29/16 11/30/16 12/01/16 06:59 06:59 06:59 Intake Total 997 799 474 Balance 997 799 474 Weight 35.8 kg 35.8 kg General appearance: PRESENT: mild distress Eye exam: PRESENT: PERRLA Respiratory exam: PRESENT: decreased breath sounds Cardiovascular exam: PRESENT: +S1, +S2 GI/Abdominal exam: PRESENT: soft Neurological exam: PRESENT: alert Results Laboratory Results: 11/25/16 06:18 11/26/16 06:56 Impressions: Chest X-Ray 11/23/16 13:40 IMPRESSION: COPD. NO ACUTE RADIOGRAPHIC FINDING IN THE CHEST. Chest CT 11/27/16 00:00 IMPRESSION: Obstructive lung disease. A tiny left pleural effusion is identified. There is some minimal increased density in the right posterior sulcus most consistent with atelectatic changes. Other findings as noted above Assessment & Plan - Diagnosis (1) Acute hypercapnic respiratory failure Is this a current diagnosis for this admission?: Yes (2) COPD exacerbation Is this a current diagnosis for this admission?: Yes (3) Undernutrition Is this a current diagnosis for this admission?: Yes (4) Protein-calorie undernutrition Is this a current diagnosis for this admission?: Yes (5) Debility, unspecified Is this a current diagnosis for this admission?: Yes (6) Hypertension Qualifiers: Hypertension type: essential hypertension Qualified Code(s): I10 - Essential (primary) hypertension Is this a current diagnosis for this admission?: Yes
[2016-11-30] MEDS: TRAMADOL HCL 50 MG TABLET PO SCH ×2 (17:28→23:23)
[2016-11-30] MEDS: LOSARTAN POTASSIUM 50 MG TABLET PO SCH (22:02)
[2016-12-01] MEDS: LANSOPRAZOLE 30 MG TAB.RAP.DR PO SCH (05:26)
[2016-12-01] MEDS: ACETAMINOPHEN 325 MG TABLET PO SCH ×4 (05:26→23:05)
[2016-12-01] MEDS: AMLODIPINE BESYLATE 10 MG TABLET PO SCH (05:27)
[2016-12-01] MEDS: TRAMADOL HCL 50 MG TABLET PO SCH ×4 (05:27→23:05)
[2016-12-01] MEDS: LEVOFLOXACIN 750 MG TABLET PO SCH (08:36)
[2016-12-01] MEDS: ENOXAPARIN SODIUM INJ 30 MG/0.3 ML DISP.SYRIN SUBCUT SCH (08:36)
[2016-12-01] MEDS: GUAIFENESIN 600 MG TABLET.SA PO SCH ×2 (10:03→23:04)
[2016-12-01] MEDS: BUDESONIDE/FORMOTEROL 160-4.5 MCG 60 PUFF/6 GM MDI IH SCH ×2 (10:03→17:53)
[2016-12-01] MEDS: PREDNISONE 20 MG TABLET PO SCH (10:03)
--- NOTE | 2016-12-01 16:01 | PDOC PROGRESS REPORT ---
Subjective Progress Note for:: 12/01/16 Subjective:: Patient's condition is about the same yesterday she was started on Ultram for pain control and that seems to help significantly Physical Exam Vital Signs: Temp Pulse Resp BP Pulse Ox 98.0 F 107 H 21 H 145/73 H 90 L 12/01/16 12:21 12/01/16 14:00 12/01/16 12:21 12/01/16 12:21 12/01/16 12:21 Intake & Output 11/30/16 12/01/16 12/02/16 06:59 06:59 06:59 Intake Total 799 624 257 Balance 799 624 257 Weight 35.8 kg 35.8 kg General appearance: PRESENT: no acute distress Eye exam: PRESENT: PERRLA Cardiovascular exam: PRESENT: +S1, +S2 GI/Abdominal exam: PRESENT: soft Results Laboratory Results: 11/25/16 06:18 11/26/16 06:56 Impressions: Chest X-Ray 11/23/16 13:40 IMPRESSION: COPD. NO ACUTE RADIOGRAPHIC FINDING IN THE CHEST. Chest CT 11/27/16 00:00 IMPRESSION: Obstructive lung disease. A tiny left pleural effusion is identified. There is some minimal increased density in the right posterior sulcus most consistent with atelectatic changes. Other findings as noted above Assessment & Plan - Diagnosis (1) Acute hypercapnic respiratory failure Is this a current diagnosis for this admission?: Yes (2) COPD exacerbation Is this a current diagnosis for this admission?: Yes (3) Undernutrition Is this a current diagnosis for this admission?: Yes (4) Protein-calorie undernutrition Is this a current diagnosis for this admission?: Yes (5) Debility, unspecified Is this a current diagnosis for this admission?: Yes (6) Hypertension Qualifiers: Hypertension type: essential hypertension Qualified Code(s): I10 - Essential (primary) hypertension Is this a current diagnosis for this admission?: Yes
[2016-12-01] MEDS: LOSARTAN POTASSIUM 50 MG TABLET PO SCH (23:05)
[2016-12-02] MEDS: AMLODIPINE BESYLATE 10 MG TABLET PO SCH (06:41)
[2016-12-02] MEDS: LANSOPRAZOLE 30 MG TAB.RAP.DR PO SCH (06:41)
[2016-12-02] MEDS: TRAMADOL HCL 50 MG TABLET PO SCH ×4 (06:41→23:19)
[2016-12-02] MEDS: ACETAMINOPHEN 325 MG TABLET PO SCH ×4 (06:41→23:20)
[2016-12-02] MEDS: ENOXAPARIN SODIUM INJ 30 MG/0.3 ML DISP.SYRIN SUBCUT SCH (08:08)
[2016-12-02] MEDS: LEVOFLOXACIN 750 MG TABLET PO SCH (08:08)
[2016-12-02] MEDS: GUAIFENESIN 600 MG TABLET.SA PO SCH ×2 (10:52→21:32)
[2016-12-02] MEDS: PREDNISONE 20 MG TABLET PO SCH (10:52)
[2016-12-02] MEDS: BUDESONIDE/FORMOTEROL 160-4.5 MCG 60 PUFF/6 GM MDI IH SCH ×2 (10:52→17:20)
--- NOTE | 2016-12-02 20:06 | PDOC PROGRESS REPORT ---
Subjective Progress Note for:: 12/02/16 Subjective:: Patient's condition is about the same, it seems that she has optimized inpatient care, we will reduce the prednisone to 20 and we plan for transfer by the half-way Physical Exam Vital Signs: Temp Pulse Resp BP Pulse Ox 98.5 F 115 H 18 121/66 100 12/02/16 15:29 12/02/16 15:29 12/02/16 15:29 12/02/16 15:29 12/02/16 15:29 Intake & Output 12/01/16 12/02/16 12/03/16 06:59 06:59 06:59 Intake Total 624 457 840 Balance 624 457 840 Weight 35.8 kg 35.8 kg General appearance: PRESENT: no acute distress Eye exam: PRESENT: PERRLA Respiratory exam: PRESENT: clear to auscultation ivan Cardiovascular exam: PRESENT: +S1, +S2 Results Laboratory Results: 11/25/16 06:18 11/26/16 06:56 Impressions: Chest X-Ray 11/23/16 13:40 IMPRESSION: COPD. NO ACUTE RADIOGRAPHIC FINDING IN THE CHEST. Chest CT 11/27/16 00:00 IMPRESSION: Obstructive lung disease. A tiny left pleural effusion is identified. There is some minimal increased density in the right posterior sulcus most consistent with atelectatic changes. Other findings as noted above Assessment & Plan - Diagnosis (1) Acute hypercapnic respiratory failure Is this a current diagnosis for this admission?: Yes (2) COPD exacerbation Is this a current diagnosis for this admission?: Yes (3) Undernutrition Is this a current diagnosis for this admission?: Yes (4) Protein-calorie undernutrition Is this a current diagnosis for this admission?: Yes (5) Debility, unspecified Is this a current diagnosis for this admission?: Yes (6) Hypertension Qualifiers: Hypertension type: essential hypertension Qualified Code(s): I10 - Essential (primary) hypertension Is this a current diagnosis for this admission?: Yes
[2016-12-02] MEDS: LOSARTAN POTASSIUM 50 MG TABLET PO SCH (21:32)
[2016-12-03] MEDS: LANSOPRAZOLE 30 MG TAB.RAP.DR PO SCH (05:49)
[2016-12-03] MEDS: TRAMADOL HCL 50 MG TABLET PO SCH ×4 (05:49→23:42)
[2016-12-03] MEDS: ACETAMINOPHEN 325 MG TABLET PO SCH ×4 (05:49→23:42)
[2016-12-03] MEDS: AMLODIPINE BESYLATE 10 MG TABLET PO SCH (05:49)
[2016-12-03] MEDS: GUAIFENESIN 600 MG TABLET.SA PO SCH ×2 (09:04→21:17)
[2016-12-03] MEDS: BUDESONIDE/FORMOTEROL 160-4.5 MCG 60 PUFF/6 GM MDI IH SCH ×2 (09:04→17:43)
[2016-12-03] MEDS: PREDNISONE 20 MG TABLET PO SCH (09:04)
[2016-12-03] MEDS: ENOXAPARIN SODIUM INJ 30 MG/0.3 ML DISP.SYRIN SUBCUT SCH (09:04)
[2016-12-03] MEDS ORDERED: DOCUSATE SODIUM 100 MG CAPSULE PO ONE (19:00)
--- NOTE | 2016-12-03 19:00 | PDOC PROGRESS REPORT ---
Subjective Progress Note for:: 12/03/16 Subjective:: Patient's condition is stabilized for discharge back to alf Physical Exam Vital Signs: Temp Pulse Resp BP Pulse Ox 98.3 F 93 16 133/72 H 100 12/03/16 11:50 12/03/16 14:00 12/03/16 11:50 12/03/16 11:50 12/03/16 11:50 Intake & Output 12/02/16 12/03/16 12/04/16 06:59 06:59 06:59 Intake Total 457 1180 Balance 457 1180 Weight 35.8 kg 35 kg General appearance: PRESENT: no acute distress Eye exam: PRESENT: PERRLA Respiratory exam: PRESENT: clear to auscultation ivan Cardiovascular exam: PRESENT: +S1, +S2 GI/Abdominal exam: PRESENT: soft Results Laboratory Results: 11/25/16 06:18 11/26/16 06:56 Impressions: Chest X-Ray 11/23/16 13:40 IMPRESSION: COPD. NO ACUTE RADIOGRAPHIC FINDING IN THE CHEST. Chest CT 11/27/16 00:00 IMPRESSION: Obstructive lung disease. A tiny left pleural effusion is identified. There is some minimal increased density in the right posterior sulcus most consistent with atelectatic changes. Other findings as noted above Assessment & Plan - Diagnosis (1) Acute hypercapnic respiratory failure Is this a current diagnosis for this admission?: Yes (2) COPD exacerbation Is this a current diagnosis for this admission?: Yes (3) Undernutrition Is this a current diagnosis for this admission?: Yes (4) Protein-calorie undernutrition Is this a current diagnosis for this admission?: Yes (5) Debility, unspecified Is this a current diagnosis for this admission?: Yes (6) Hypertension Qualifiers: Hypertension type: essential hypertension Qualified Code(s): I10 - Essential (primary) hypertension Is this a current diagnosis for this admission?: Yes
[2016-12-03] MEDS: LOSARTAN POTASSIUM 50 MG TABLET PO SCH (21:17)
[2016-12-04] MEDS: TRAMADOL HCL 50 MG TABLET PO SCH ×3 (05:47→17:22)
[2016-12-04] MEDS: ACETAMINOPHEN 325 MG TABLET PO SCH ×3 (05:47→17:21)
[2016-12-04] MEDS: LANSOPRAZOLE 30 MG TAB.RAP.DR PO SCH (05:47)
[2016-12-04] MEDS: AMLODIPINE BESYLATE 10 MG TABLET PO SCH (05:47)
[2016-12-04 08:07] LABS: HEMATOCRIT 35.8 % (36.0-47.0); HEMOGLOBIN 11.7 g/dL (12.0-15.5); HGB HCT DIFFERENCE -0.7; MEAN CORPUSCULAR HEMOGLOBIN 30.6 pg (27.0-33.4); MEAN CORPUSCULAR HGB CONC 32.7 g/dL (32.0-36.0); MEAN CORPUSCULAR VOLUME 94 fl (80-97); RED BLOOD COUNT 3.82 10^6/uL (3.72-5.28); RED CELL DISTRIBUTION WIDTH 15.4 % (11.5-14.0); WHITE BLOOD COUNT 22.6 10^3/uL (4.0-10.5)
[2016-12-04 08:18] LABS: ALANINE AMINOTRANSFERASE 40 U/L (9-52); ALBUMIN 3.2 g/dL (3.5-5.0); ALKALINE PHOSPHATASE 68 U/L (38-126); ASPARTATE AMINO TRANSFERASE 16 U/L (14-36); BILIRUBIN,TOTAL 0.7 mg/dL (0.2-1.3); BLOOD UREA NITROGEN 17 mg/dL (7-20); CALCIUM 10.4 mg/dL (8.4-10.2); CARBON DIOXIDE 33 mmol/L (22-30); CREATININE RESULT 0.22 mg/dL (0.52-1.25); GLUCOSE 76 mg/dL (75-110)
[2016-12-04] MEDS: ENOXAPARIN SODIUM INJ 30 MG/0.3 ML DISP.SYRIN SUBCUT SCH (08:22)
[2016-12-04 08:28] LABS: ANION GAP 5 (5-19); CHLORIDE 99 mmol/L (98-107); POTASSIUM 4.7 mmol/L (3.6-5.0)
[2016-12-04 08:46] LABS: ANISOCYTOSIS SLIGHT; BASOPHILS % (MANUAL) 0 % (0-2); EOSINOPHILS % (MANUAL) 1 % (0-6); HYPOCHROMASIA 1+; LYMPHOCYTES % (MANUAL) 1 % (13-45); OVALOCYTES SLIGHT; POIKILOCYTOSIS SLIGHT; POLYCHROMASIA SLIGHT; TOTAL CELLS COUNTED 100; TOXIC GRANULATION SLIGHT
[2016-12-04] MEDS ORDERED: NA PHOS,M-B/NA PHOS,DI-BA (ADULT) 133 ML ENEMA PR ONE (09:30)
[2016-12-04] MEDS: BUDESONIDE/FORMOTEROL 160-4.5 MCG 60 PUFF/6 GM MDI IH SCH ×2 (10:12→17:21)
[2016-12-04] MEDS: GUAIFENESIN 600 MG TABLET.SA PO SCH ×2 (10:12→21:15)
[2016-12-04] MEDS: PREDNISONE 20 MG TABLET PO SCH (10:12)
[2016-12-04] MEDS: DOCUSATE SODIUM 100 MG CAPSULE PO SCH ×2 (10:12→17:21)
[2016-12-04 17:42] LABS: ARTERIAL BLOOD BASE EXCESS 3.1 mmol/L; ARTERIAL BLOOD O2 SATURATION 95.8 % (94-98)
--- NOTE | 2016-12-04 18:07 | PDOC PROGRESS REPORT ---
Subjective Progress Note for:: 12/04/16 Subjective:: She was supposed to be transferred back to [facility] today then she developed acute respiratory distress with the use of accessory muscles of respiration to breathe, a stat CT chest was done and did not show any acute infiltrates in fact there was improvement from previous imaging. A stat ABG was done, pH 7.4, PO2 77 Physical Exam Vital Signs: Temp Pulse Resp BP Pulse Ox 98.3 F 116 H 22 H 141/81 H 99 12/04/16 15:51 12/04/16 15:51 12/04/16 15:51 12/04/16 15:51 12/04/16 15:51 Intake & Output 12/03/16 12/04/16 12/05/16 06:59 06:59 06:59 Intake Total 1180 1090 474 Balance 1180 1090 474 Weight 35 kg 38.6 kg General appearance: PRESENT: severe distress Eye exam: PRESENT: PERRLA Respiratory exam: PRESENT: accessory muscle use, decreased breath sounds Cardiovascular exam: PRESENT: +S1, +S2 GI/Abdominal exam: PRESENT: soft Results Laboratory Results: 12/04/16 07:53 12/04/16 07:53 12/04/16 12/04/16 12/04/16 07:53 07:53 16:15 WBC 22.6 H RBC 3.82 Hgb 11.7 L Hct 35.8 L MCV 94 MCH 30.6 MCHC 32.7 RDW 15.4 H Plt Count 155 Seg Neutrophils % Not Reportable Lymphocytes % Not Reportable Monocytes % Not Reportable Eosinophils % Not Reportable Basophils % Not Reportable Absolute Neutrophils Not Reportable Absolute Lymphocytes Not Reportable Absolute Monocytes Not Reportable Absolute Eosinophils Not Reportable Absolute Basophils Not Reportable Carbonic Acid 1.26 HCO3/H2CO3 Ratio 21:1 ABG pH 7.44 ABG pCO2 41.7 ABG pO2 77.0 L ABG HCO3 27.6 H ABG O2 Saturation 95.8 ABG Base Excess 3.1 FiO2 1.5L Sodium 137.0 Potassium 4.7 Chloride 99 Carbon Dioxide 33 H Anion Gap 5 BUN 17 Creatinine 0.22 L Est GFR ( Amer) > 60 Est GFR (Non-Af Amer) > 60 Glucose 76 Calcium 10.4 H Total Bilirubin 0.7 AST 16 ALT 40 Alkaline Phosphatase 68 Total Protein 5.0 L Albumin 3.2 L Impressions: Chest X-Ray 11/23/16 13:40 IMPRESSION: COPD. NO ACUTE RADIOGRAPHIC FINDING IN THE CHEST. Chest CT 12/04/16 00:00 IMPRESSION: Interval resolution of the tiny left pleural effusion and interval improvement in the right basilar densities most consistent with atelectatic changes. Again there is evidence for obstructive lung disease with emphysematous changes. Other findings as noted above Assessment & Plan - Diagnosis (1) Acute hypercapnic respiratory failure Is this a current diagnosis for this admission?: Yes (2) COPD exacerbation Is this a current diagnosis for this admission?: Yes (3) Undernutrition Is this a current diagnosis for this admission?: Yes (4) Protein-calorie undernutrition Is this a current diagnosis for this admission?: Yes (5) Debility, unspecified Is this a current diagnosis for this admission?: Yes (6) Hypertension Qualifiers: Hypertension type: essential hypertension Qualified Code(s): I10 - Essential (primary) hypertension Is this a current diagnosis for this admission?: Yes (7) Acute respiratory distress Is this a current diagnosis for this admission?: YesPlan: The differential diagnosis include pneumonia, COPD, pulmonary embolism.
[2016-12-04] MEDS: LOSARTAN POTASSIUM 50 MG TABLET PO SCH (21:15)
[2016-12-05] MEDS: ACETAMINOPHEN 325 MG TABLET PO SCH ×5 (00:10→23:06)
[2016-12-05] MEDS: TRAMADOL HCL 50 MG TABLET PO SCH ×5 (00:11→23:06)
[2016-12-05] MEDS: AMLODIPINE BESYLATE 10 MG TABLET PO SCH (05:39)
[2016-12-05] MEDS: LANSOPRAZOLE 30 MG TAB.RAP.DR PO SCH (05:39)
[2016-12-05] MEDS: ENOXAPARIN SODIUM INJ 30 MG/0.3 ML DISP.SYRIN SUBCUT SCH (09:40)
[2016-12-05] MEDS: GUAIFENESIN 600 MG TABLET.SA PO SCH ×2 (09:40→23:06)
[2016-12-05] MEDS: PREDNISONE 20 MG TABLET PO SCH (09:41)
[2016-12-05] MEDS: BUDESONIDE/FORMOTEROL 160-4.5 MCG 60 PUFF/6 GM MDI IH SCH ×2 (09:41→17:03)
[2016-12-05] MEDS: DOCUSATE SODIUM 100 MG CAPSULE PO SCH ×2 (09:41→17:03)
--- NOTE | 2016-12-05 19:42 | PDOC PROGRESS REPORT ---
Subjective Progress Note for:: 12/05/16 Subjective:: [facility] then she developed acute respiratory distress with the use of accessory muscles of respiration to breathe, a stat CT chest was done and did not show any acute infiltrates in fact there was improvement from previous imaging. she seems to be ding well today Physical Exam Vital Signs: Temp Pulse Resp BP Pulse Ox 97.6 F 97 16 138/73 H 100 12/05/16 17:06 12/05/16 17:06 12/05/16 17:06 12/05/16 17:06 12/05/16 17:06 Intake & Output 12/04/16 12/05/16 12/06/16 06:59 06:59 06:59 Intake Total 1090 594 520 Balance 1090 594 520 Weight 38.6 kg 37.2 kg General appearance: PRESENT: no acute distress Eye exam: PRESENT: PERRLA Respiratory exam: PRESENT: clear to auscultation ivan Cardiovascular exam: PRESENT: +S1, +S2 GI/Abdominal exam: PRESENT: soft Results Laboratory Results: 12/04/16 07:53 12/04/16 07:53 Impressions: Chest X-Ray 11/23/16 13:40 IMPRESSION: COPD. NO ACUTE RADIOGRAPHIC FINDING IN THE CHEST. Chest CT 12/04/16 00:00 IMPRESSION: Interval resolution of the tiny left pleural effusion and interval improvement in the right basilar densities most consistent with atelectatic changes. Again there is evidence for obstructive lung disease with emphysematous changes. Other findings as noted above Assessment & Plan - Diagnosis (1) Acute hypercapnic respiratory failure Is this a current diagnosis for this admission?: Yes (2) COPD exacerbation Is this a current diagnosis for this admission?: Yes (3) Undernutrition Is this a current diagnosis for this admission?: Yes (4) Protein-calorie undernutrition Is this a current diagnosis for this admission?: Yes (5) Debility, unspecified Is this a current diagnosis for this admission?: Yes (6) Hypertension Qualifiers: Hypertension type: essential hypertension Qualified Code(s): I10 - Essential (primary) hypertension Is this a current diagnosis for this admission?: Yes (7) Acute respiratory distress Is this a current diagnosis for this admission?: Yes
[2016-12-05] MEDS: LOSARTAN POTASSIUM 50 MG TABLET PO SCH (23:05)
[2016-12-06] MEDS: ACETAMINOPHEN 325 MG TABLET PO SCH ×3 (06:16→17:42)
[2016-12-06] MEDS: AMLODIPINE BESYLATE 10 MG TABLET PO SCH (06:17)
[2016-12-06] MEDS: TRAMADOL HCL 50 MG TABLET PO SCH ×3 (06:17→17:41)
[2016-12-06] MEDS: LANSOPRAZOLE 30 MG TAB.RAP.DR PO SCH (06:18)
[2016-12-06] MEDS: ENOXAPARIN SODIUM INJ 30 MG/0.3 ML DISP.SYRIN SUBCUT SCH (09:06)
[2016-12-06] MEDS: BUDESONIDE/FORMOTEROL 160-4.5 MCG 60 PUFF/6 GM MDI IH SCH ×2 (09:07→17:41)
[2016-12-06] MEDS: DOCUSATE SODIUM 100 MG CAPSULE PO SCH ×2 (09:07→17:41)
[2016-12-06] MEDS: GUAIFENESIN 600 MG TABLET.SA PO SCH (09:07)
[2016-12-06] MEDS: PREDNISONE 20 MG TABLET PO SCH (09:07)
--- NOTE | 2016-12-06 15:29 | PDOC TRANSFER SUMMARY ---
General - Admit/Disc Date/PCP Admission Date/Primary Care Provider: 11/23/16 15:24 LESLEY ANDINO MD Discharge Date: 12/06/16 - Discharge Diagnosis (1) Acute hypercapnic respiratory failure Is this a current diagnosis for this admission?: Yes (2) COPD exacerbation Is this a current diagnosis for this admission?: Yes (3) Undernutrition Is this a current diagnosis for this admission?: Yes (4) Protein-calorie undernutrition Is this a current diagnosis for this admission?: Yes (5) Debility, unspecified Is this a current diagnosis for this admission?: Yes (6) Hypertension Is this a current diagnosis for this admission?: Yes (7) Acute respiratory distress Is this a current diagnosis for this admission?: Yes - Additional Information Resuscitation Status: Full Code Home Medications: Acetaminophen [Tylenol 325 mg Tablet] 650 mg PO Q6 11/21/16 Carvedilol [Coreg 6.25 mg Tablet] 6.25 mg PO Q12 11/21/16 Docusate Sodium [Colace 100 mg Capsule] 100 mg PO BID 11/21/16 Fluticasone/Salmeterol [Advair 250-50 Diskus 14 Dose/Diskus] 1 puff IH BID 11/21 Ipratropium Valmora [Atrovent 0.02% Neb 0.5 mg/2.5 ml Ampul] 0.5 mg NEB Q6 11/21 Levalbuterol HCl [Xopenex Neb 1.25 mg/3 ml Ampul] 1.25 mg NEB Q2HP PRN 11/21/16 Levalbuterol HCl [Xopenex Neb 1.25 mg/3 ml Ampul] 1.25 mg PO Q6 11/21/16 Lorazepam [Ativan 0.5 mg Tablet] 0.5 mg PO Q8HP PRN 11/21/16 Losartan Potassium [Cozaar 100 mg Tablet] 100 mg PO QHS 11/21/16 Omeprazole 40 mg PO DAILY 11/21/16 Pnv No.122/Iron/Folic Acid [ Multi Tablet] 1 tab PO DAILY 11/21/16 Polyethylene Glycol 3350 [Miralax Powder 17 gm/Packet] 17 gm PO DAILY 11/21/16 Prednisone [Deltasone 20 mg Tablet] 20 mg PO DAILY #0 tablet 12/06/16 Tramadol HCl [Ultram 50 mg Tablet] 50 mg PO Q6 #120 tablet 12/06/16 History of Present Illness Admission Date/PCP: 11/23/16 15:24 LESLEY ANDINO MD History of Present Illness: [place]IA YUAN is a 71 year old female, patient's condition is very poor. She has very severe COPD, hypertension, gout, rheumatoid arthritis, severe debilitation , contractured extremities,Scoliosis and she is full code. [facility]. She was recently admitted and discharged from this hospital on 10/14/2016 and she presently resides in the [facility] at [place]. She was transferred to emergency room last night because of shortness of breath, in the emergency room she was evaluated. Chest x-ray was done that was no acute infiltrate but it was consistent with COPD with flattened diaphragm. I recently saw in the penitentiary last Friday and she was prescribed Levaquin antibiotic, at the time, she had a chest x-ray done that suggest an infiltrate. Patient overall physical condition is very poor.She is extremely wasted the body mass index is 15, she can hardly finish a sentence for lack of energy. It seems that patient is prednisone dependent and part of the etiology of the leukocytosis could be from the prednisone. It is interesting that despite being on prednisone, Patient is still wheezing and short of breath, we will transition to IV Solu-Medrol, patient's CODE STATUS needs to be addressed. She is extremely debilitated, the extremities are wasted with no muscle mass Hospital Course Hospital Course: Patient 71-year-old female with very severe chronic obstructive pulmonary disease, disabling rheumatoid arthritis, severe debility she was admitted because of acute hypercapnic respiratory failure due to acute COPD exacerbation , she was treated with IV Solu-Medrol, with bronchodilators and IV antibiotic she also had elevated blood pressure medications were adjusted. Part of patient 's symptoms is due to anxiety she was found times about ventilates in response to anxiety disorder, overall prognosis is poor in this patient, hospital because was somewhat prolonged because of difficulty in controlling her symptoms of acute COPD exacerbation Physical Exam Vital Signs: Temp Pulse Resp BP Pulse Ox 97.8 F 90 18 114/59 L 99 12/06/16 05:54 12/06/16 07:00 12/06/16 05:54 12/06/16 05:54 12/06/16 05:54 Intake & Output 12/05/16 12/06/16 12/07/16 06:59 06:59 06:59 Intake Total 594 520 Balance 594 520 Weight 37.2 kg 39.2 kg General appearance: PRESENT: hard of hearing Head exam: PRESENT: atraumatic, normocephalic Eye exam: PRESENT: PERRLA Respiratory exam: PRESENT: decreased breath sounds Cardiovascular exam: PRESENT: +S1, +S2 GI/Abdominal exam: PRESENT: soft Extremities exam: PRESENT: other - contracted extremities Neurological exam: PRESENT: alert Results Laboratory Results: 12/04/16 07:53 12/04/16 07:53 Impressions: Chest X-Ray 11/23/16 13:40 IMPRESSION: COPD. NO ACUTE RADIOGRAPHIC FINDING IN THE CHEST. Chest CT 12/04/16 00:00 IMPRESSION: Interval resolution of the tiny left pleural effusion and interval improvement in the right basilar densities most consistent with atelectatic changes. Again there is evidence for obstructive lung disease with emphysematous changes. Other findings as noted above
[2016-12-06 16:51] VITALS: BP 144/57
== END 2016-12-06 20:30 | DRG 190 ==
LOC: ER 01:19 → UNDOADMIN 08:36 → EH 08:36 → INTOOBSV 12:48 → EH 12:48 → 5 15:40 → OBSVTOIN 11-23 15:24
PROVIDERS: ADMIT Internal Medicine; ATTEND Internal Medicine
PROC: 3E0F73Z Introduction of Anti-inflammatory into Respiratory Tract, Via Natural or Artificial Opening (ICD-10-PCS; principal; 2016-11-21)
DX: J44.1 Chronic obstructive pulmonary disease with (acute) exacerbation (principal); J96.02 Acute respiratory failure with hypercapnia; E46 Unspecified protein-calorie malnutrition; Z68.1 Body mass index [BMI] 19.9 or less, adult; E87.2 Acidosis; I10 Essential (primary) hypertension; M10.9 Gout, unspecified; M06.9 Rheumatoid arthritis, unspecified; M41.9 Scoliosis, unspecified; F41.9 Anxiety disorder, unspecified; K21.9 Gastro-esophageal reflux disease without esophagitis; Z66 Do not resuscitate; Z87.891 Personal history of nicotine dependence; Z79.899 Other long term (current) drug therapy
CPT/HCPCS: 36415; 36600; 71010; 71250; 80048; 80053; 81001; 82550; 82553; 82803; 83735; 84484; 85025; 85027; 85379; 87040; 93005; 93010; 94640; 94667; 94668; 94799; 96365; 96366; 96367; 96375; 99285; G0378; J0696; J1650; J1956; J2930; J3475; J3490; J7512; J7620

== ENCOUNTER 2017-01-05 11:50 | Inpatient (IN) | payer MEDICARE ==
[2017-01-05] MEDS ORDERED: IPRATROPIUM/ALBUTEROL 0.5-2.5 MG/3 ML AMPUL NEB ONE (11:57)
[2017-01-05] MEDS ORDERED: METHYLPREDNISOLONE INJ 40 MG/1 ML SDV IV ONE (11:59)
--- NOTE | 2017-01-05 11:59 | ER Document Report ---
ED General - General Mode of Arrival: Medic Information source: Patient, Emergency Med Personnel, Outside Facility Records TRAVEL OUTSIDE OF THE [place] IN LAST 30 DAYS: No - HPI Patient complains to provider of: Altered Vital Signs Onset: This morning Onset/Duration: Gradual, Persistent Associated symptoms: Shortness of breath - Wheezing Recently seen / treated by doctor: Yes - 12/21/2016 [facility] ED acute respiratory failure <MARY ESQUIVEL - Last Filed: 01/05/17 11:53> <SYLWIA SORIANO - Last Filed: 01/05/17 15:41> - General Chief Complaint: Shortness Of Breath Stated Complaint: Altered Vital Signs Notes: Patient is a 71-year-old female presenting to the emergency department from [facility] via EMS due to concerns of altered vital signs and wheezing. EMS states that the patient was diaphoretic, 95% O2 saturation on 2 L nasal cannula. Patient was seen here on 12/21/2016 with acute respiratory failure. When patient is asked how she is feeling, she states that she is feeling okay. (MARY ESQUIVEL) - Related Data Allergies/Adverse Reactions: No Known Allergies Allergy (Verified 11/21/16 05:26) Past Medical History - General Information source: Patient, Emergency Med Personnel, [facility] Records, Outside Facility Records - Social History Smoking Status: Unknown if Ever Smoked Family History: None - Past Medical History Cardiac Medical History: Reports: Hx Hypertension Pulmonary Medical History: Reports: Hx COPD Neurological Medical History: Denies: Hx Seizures GI Medical History: Reports: Hx Gastroesophageal Reflux Disease, Hx Ulcer Musculoskeltal Medical History: Reports Hx Arthritis - Rheumatoid arthritis, osteoporosis, Reports Hx Gout Past Surgical History: Reports: Other - Patient denies any recent operations. - Immunizations Hx Diphtheria, Pertussis, Tetanus Vaccination: Yes <MARY ESQUIVEL - Last Filed: 01/05/17 11:53> Review of Systems - Review of Systems -: Yes ROS unobtainable due to patient's medical condition - ROS obtained from EMS Constitutional: See HPI, Other - "Altered Vital Signs" - Hypoxic, Tachycardic EENT: No symptoms reported Cardiovascular: No symptoms reported Respiratory: See HPI, Wheezing Gastrointestinal: No symptoms reported Genitourinary: No symptoms reported Female Genitourinary: No symptoms reported Musculoskeletal: No symptoms reported Skin: No symptoms reported Hematologic/Lymphatic: No symptoms reported Neurological/Psychological: No symptoms reported -: Yes All other systems reviewed and negative <SIERRAMARY - Last Filed: 01/05/17 11:53> Physical Exam - Vital signs Interpretation: Tachycardic, Hypoxic - General General appearance: Alert, Other - Cachectic - HEENT Head: Normocephalic, Atraumatic Eyes: Normal Pupils: PERRL - Respiratory Respiratory status: Tachypnea Chest status: Nontender Breath sounds: Decreased air movement - Bilaterally, coarse breath sounds - Cardiovascular Rhythm: Regular Heart sounds: Normal auscultation Murmur: No - Abdominal Inspection: Normal Tenderness: Nontender - Back Back: Normal, Nontender - Extremities General upper extremity: Normal inspection, Nontender, Other - Significant arthritic changes, muscular wasting. No: Edema General lower extremity: Normal inspection, Nontender, Other - Significant arthritic changes, muscular wasting. No: Edema - Neurological Neuro grossly intact: Yes Orientation: AAOx4 - Appears oriented, although minimal responses to questions asked. Dawson Coma Scale Eye Opening: Spontaneous [place] Coma Scale Verbal: Oriented [place] Coma Scale Motor: Obeys Commands [place] Coma Scale Total: 15 - Psychological Associated symptoms: Normal affect, Normal mood - Skin Skin Temperature: Warm Skin Moisture: Dry Skin Color: Normal <MARY ESQUIVEL - Last Filed: 01/05/17 11:53> Course <MARY ESQUIVEL - Last Filed: 01/05/17 11:53> - Laboratory Result Diagrams: 01/05/17 11:34 01/05/17 13:46 - Diagnostic Test Radiology reviewed: Image reviewed, Reports reviewed - EKG Interpretation by Me EKG shows normal: Sinus rhythm Rate: Tachycardia Colony/QRS: No: Right axis deviation, Left axis deviation, RBBB, LBBB, IVCD, LAHB/ LAFB, LPHB/LPFB, Bifasicular block - Consults Dr. Mcmahon Time consulted: 14:53 - Message left with him by duck operator. <SYLWIA SORIANO - Last Filed: 01/05/17 15:41> - Re-evaluation Re-evalutation: 01/05/17 13:10 Patient is being treated for acute hypercapnic respiratory failure and BiPAP was being placed. We did confirm the patient is a DO NOT RESUSCITATE and she has paperwork with her as well. She is being treated as septic from a left lower lobe pneumonia. (SYLWIA SORIANO) - Vital Signs Vital signs: Temp Pulse Resp BP Pulse Ox 32 H 100 01/05/17 12:22 01/05/17 12:22 - Laboratory Laboratory results interpreted by me: 01/05/17 01/05/17 01/05/17 11:34 12:30 12:51 WBC 36.0 H* RDW 15.5 H Seg Neuts % (Manual) 90 H Lymphocytes % (Manual) 1 L Metamyelocytes % 1 H Abs Neuts (Manual) 34.2 H Carbonic Acid 2.83 H ABG pH 7.16 L* ABG pCO2 94.1 H* ABG pO2 112.3 H ABG HCO3 32.4 H ABG Total CO2 35.3 H Carbon Dioxide Creatinine Glucose Calcium Total Protein Albumin Urine Protein 30 H 01/05/17 13:46 WBC RDW Seg Neuts % (Manual) Lymphocytes % (Manual) Metamyelocytes % Abs Neuts (Manual) Carbonic Acid ABG pH ABG pCO2 ABG pO2 ABG HCO3 ABG Total CO2 Carbon Dioxide 31 H Creatinine 0.34 L Glucose 131 H Calcium 10.3 H Total Protein 5.5 L Albumin 3.4 L Urine Protein - Diagnostic Test Radiology results interpreted by me: 01/05/17 12:40 Left lower lobe pneumonia (SYLWIA SORIANO) - EKG Interpretation by Me Additional EKG results interpreted by me: 01/05/17 12:40 clear ischemia, rate related changes (SYLWIA SORIANO) - Consults Dr. Mcmahon Reason for consultation: 01/05/17 15:41 Dr. Mcmahon will see and evaluate the patient here in the emergency department (SYLWIA SORIANO) Critical Care Note - Critical Care Note Total time excluding time spent on procedures (mins): 36 <SYLWIA SORIANO - Last Filed: 01/05/17 15:41> Discharge <MARY ESQUIVEL - Last Filed: 01/05/17 11:53> - Discharge Admitting Provider: Hospitalist - Dr. Hernandez Unit Admitted: [facility] <SYLWIA SORIANO - Last Filed: 01/05/17 15:41> - Discharge Clinical Impression: Acute respiratory failure with hypercapnia, Pneumonia Condition: Serious Disposition: ADMITTED INPATIENT Scribe Attestation: 01/05/17 14:35 I personally performed the services described in the documentation, reviewed and edited the documentation which was dictated to the scribe in my presence, and it accurately records my words and actions. (SYLWIA SORIANO) Scribe Documentation - Scribe Written by Scribe:: Mary Esquivel 01/05/2017 [id number] acting as scribe for :: Guero <MARY ESQUIVEL - Last Filed: 01/05/17 11:53>
[2017-01-05 12:28] LABS: HEMATOCRIT 41.1 % (36.0-47.0); HEMOGLOBIN 13.1 g/dL (12.0-15.5); HGB HCT DIFFERENCE -1.8; MEAN CORPUSCULAR HEMOGLOBIN 30.2 pg (27.0-33.4); MEAN CORPUSCULAR VOLUME 94 fl (80-97); RED BLOOD COUNT 4.35 10^6/uL (3.72-5.28); RED CELL DISTRIBUTION WIDTH 15.5 % (11.5-14.0)
[2017-01-05] MEDS ORDERED: PIPERACILLIN/TAZOBACTAM 3.375 GM VIAL IV ONE (12:43)
[2017-01-05 12:44] LABS: BAND NEUTROPHILS % (MANUAL) 4 % (3-5); BASOPHILS % (MANUAL) 0 % (0-2); EOSINOPHILS % (MANUAL) 0 % (0-6); LYMPHOCYTES % (MANUAL) 1 % (13-45); TOTAL CELLS COUNTED 100
[2017-01-05 12:45] LABS: ANISOCYTOSIS SLIGHT; POIKILOCYTOSIS SLIGHT; TEAR DROP CELLS SLIGHT
[2017-01-05] MEDS ORDERED: VANCOMYCIN HCL INJ 1000 MG VIAL IV ONE (12:50)
[2017-01-05 13:02] LABS: ARTERIAL BLOOD BASE EXCESS 0.9 mmol/L; ARTERIAL BLOOD O2 SATURATION 96.5 % (94-98)
[2017-01-05 13:13] LABS: APPEARANCE,URINE SLIGHTLY-CLOUDY; BILIRUBIN,URINE NEGATIVE (NEGATIVE); GLUCOSE, URINE NEGATIVE (NEGATIVE); KETONES,URINE NEGATIVE (NEGATIVE); LEUKOCYTE ESTERASE,URINE NEGATIVE (NEGATIVE); NITRITE,URINE NEGATIVE (NEGATIVE); PROTEIN,URINE 30 mg/dL (NEGATIVE); URINE SPECIFIC GRAVITY 1.014; UROBILINOGEN,URINE NEGATIVE mg/dL (<2.0)
[2017-01-05] MEDS ORDERED: NORMAL SALINE 1000 ML 1,000 ML IV ONE (13:53)
[2017-01-05 14:29] LABS: ALANINE AMINOTRANSFERASE 45 U/L (9-52); ALBUMIN 3.4 g/dL (3.5-5.0); ALKALINE PHOSPHATASE 104 U/L (38-126); ANION GAP 8 (5-19); ASPARTATE AMINO TRANSFERASE 29 U/L (14-36); BILIRUBIN,DIRECT 0.2 mg/dL (0.0-0.4); BILIRUBIN,TOTAL 0.4 mg/dL (0.2-1.3); BLOOD UREA NITROGEN 14 mg/dL (7-20); CALCIUM 10.3 mg/dL (8.4-10.2); CARBON DIOXIDE 31 mmol/L (22-30); CHLORIDE 102 mmol/L (98-107); CREATININE RESULT 0.34 mg/dL (0.52-1.25); GLUCOSE 131 mg/dL (75-110); SODIUM 141.4 mmol/L (137-145); TOTAL PROTEIN 5.5 g/dL (6.3-8.2)
[2017-01-05] MEDS ORDERED: LEVOFLOXACIN 750 MG/D5W RTU 150 ML IV ONE (14:38)
--- NOTE | 2017-01-05 20:50 | EKG REPORT ---
SEVERITY:- ABNORMAL ECG - SINUS TACHYCARDIA ABNORMAL T, CONSIDER ISCHEMIA, LATERAL LEADS : Confirmed by: Nelida Rousseau 05-Jan-2017 20:48:03
[2017-01-05] MEDS ORDERED: FAMOTIDINE INJ/PF 20 MG/2 ML SDV IV ONE (21:00)
[2017-01-05] MEDS: NORMAL SALINE 1000 ML 1,000 ML IV PRN (21:20)
[2017-01-06] MEDS: NORMAL SALINE 1000 ML 1,000 ML IV PRN ×3 (08:28→21:40)
[2017-01-06] MEDS ORDERED: ONDANSETRON HCL INJ/PF 4 MG/2 ML SDV IV PRN (09:47)
[2017-01-06] MEDS: ONDANSETRON HCL INJ/PF 4 MG/2 ML SDV IV PRN ×3 (10:22→21:38)
[2017-01-06] MEDS ORDERED: FAMOTIDINE INJ/PF 20 MG/2 ML SDV IV ONE (10:30)
[2017-01-06] MEDS ORDERED: ENOXAPARIN SODIUM INJ 30 MG/0.3 ML DISP.SYRIN SUBCUT ONE (10:30)
[2017-01-06] MEDS ORDERED: CEFEPIME 2 GM/D5W RTU 2 GM/50 ML RTUPB IV ONE (11:00)
[2017-01-06 11:37] LABS: ARTERIAL BLOOD BASE EXCESS 2.9 mmol/L; ARTERIAL BLOOD O2 SATURATION 97.8 % (94-98)
[2017-01-06] MEDS ORDERED: CEFEPIME HCL 2 GM in DEXTROSE 5%-WATER 100 ML IV ONE (12:00)
[2017-01-06] MEDS: ENALAPRILAT DIHYDRATE INJ/PF 2.5 MG/2 ML SDV IV SCH ×2 (12:20→17:28)
--- NOTE | 2017-01-06 13:02 | PDOC H&P ---
History of Present Illness Admission Date/PCP: 01/05/17 14:46 LESLEY ANDINO MD History of Present Illness: GEOR[place]IA YUAN is a 71 year old female, she has a history of end-stage COPD, rheumatoid arthritis, severe debilitation, extreme muscle atrophy, a DNR status , she developed respiratory distress in the care home at [facility] and she was transferred to the emergency room for evaluation. She was just recently admitted in this hospital on November 23, 2016 and she was discharged on December 06, 2016 on that admission she was made a DNR status and she had severe acute hypercarbic respiratory failure she is now presenting with left-sided pneumonia , chest x-ray was done ,showed diffuse mixed interstitial and airspace infiltrate since discharge from the last time, the x-ray was compared to the CT chest that was done December 04, 2016. The ABG that was done showed pH 7.16, PCO2 94.1 on FiO2 of 4 L, there was severe leukocytosis with WBC of 31,000. Patient overall prognosis is very poor, she is requiring noninvasive positive pressure ventilation, BiPAP. Past Medical History Cardiac Medical History: Reports: Hypertension Pulmonary Medical History: Reports: Chronic Obstructive Pulmonary Disease (COPD) GI Medical History: Reports: Gastroesophageal Reflux Disease Musculoskeltal Medical History: Reports: Arthritis - Rheumatoid arthritis, osteoporosis, Gout Past Surgical History Past Surgical History: Reports: Other - Patient denies any recent operations. Social History Smoking Status: Former Smoker Frequency of Alcohol Use: None Hx Recreational Drug Use: No Drugs: None Hx Prescription Drug Abuse: No - Advance Directive Resuscitation Status: Do Not Resuscitate Family History Family History: None Parental Family History Reviewed: Yes Children Family History Reviewed: Yes Sibling(s) Family History Reviewed.: Yes Medication/Allergy Home Medications: Acetaminophen [Tylenol 325 mg Tablet] 650 mg PO Q6HP PRN 01/05/17 Budesonide/Formoterol Fumarate [Symbicort HFA 160-4.5 mcg Inhaler 6 gm] 1 puff IH BID 01/05/17 Carvedilol [Coreg 6.25 mg Tablet] 6.25 mg PO Q12 01/05/17 Citalopram Hydrobromide [Celexa 20 mg Tablet] 20 mg PO DAILY 01/05/17 Clonidine HCl [Catapres 0.1 mg Tablet] 0.1 mg PO BID 01/05/17 Docusate Sodium [Colace 100 mg Capsule] 100 mg PO BID 01/05/17 Ipratropium [place] [Atrovent 0.02% Neb 0.5 mg/2.5 ml Ampul] 1 vial NEB Q6 01/05 Levalbuterol HCl [Xopenex Neb 1.25 mg/3 ml Ampul] 1 vial NEB Q6 01/05/17 Lorazepam [Ativan 0.5 mg Tablet] 0.5 mg PO Q8HP PRN 01/05/17 Losartan Potassium [Cozaar 100 mg Tablet] 100 mg PO QHS 01/05/17 Omeprazole 40 mg PO DAILY 01/05/17 Pnv with Ca,No.72/Iron/FA [ Plus Tablet] 1 tab PO DAILY 01/05/17 Polyethylene Glycol 3350 [Miralax Powder 17 gm/Packet] 1 packet PO DAILY Prednisone [Deltasone 20 mg Tablet] 20 mg PO DAILY 01/05/17 Tramadol HCl [Ultram 50 mg Tablet] 50 mg PO Q6 01/05/17 Allergies/Adverse Reactions: No Known Allergies Allergy (Verified 11/21/16 05:26) Review of Systems Constitutional: PRESENT: weight loss Cardiovascular: PRESENT: dyspnea on exertion, orthropnea. ABSENT: as per HPI, chest pain, edema, palpitations, other Respiratory: PRESENT: cough, dyspnea, sputum. ABSENT: as per HPI, hemoptysis, other Gastrointestinal: PRESENT: nausea, vomiting. ABSENT: as per HPI, abdominal pain , bloating, coffee ground emesis, constipation, diarrhea, dysphagia, heartburn, hematemesis, hematochezia, melena, other Genitourinary: ABSENT: as per HPI, difficulty urinating, dysuria, hematuria, nocturia, other Musculoskeletal: PRESENT: back pain Neurological: ABSENT: as per HPI, abnormal gait, abnormal movements, abnormal speech, confusion, convulsions, dizziness, focal weakness, frequent falls, lack of coordination, memory loss, numbness, paresthesias, restless legs, syncope, tingling, tremor(s), vertigo, weakness, other Psychiatric: PRESENT: anxiety Physical Exam Vital Signs: Temp Pulse Resp BP Pulse Ox 99.2 F 94 33 H 186/90 H 97 01/06/17 07:13 01/06/17 07:13 01/06/17 08:00 01/06/17 07:13 01/06/17 08:00 Intake & Output 01/05/17 01/06/17 01/07/17 06:59 06:59 06:59 Intake Total 2327 Balance 2327 Weight 36 kg General appearance: PRESENT: severe distress - Elderly female very thin, cachectic in severe distress requiring positive pressure ventilation, noninvasive, BiPAP machine Head exam: PRESENT: atraumatic, normocephalic Eye exam: PRESENT: conjunctiva pink, EOMI, PERRLA. ABSENT: scleral icterus Neck exam: PRESENT: full ROM Respiratory exam: PRESENT: crackles, rhonchi Cardiovascular exam: PRESENT: RRR, +S1, +S2 GI/Abdominal exam: PRESENT: normal bowel sounds, soft Rectal exam: PRESENT: deferred Neurological exam: PRESENT: alert Skin exam: PRESENT: dry, intact, warm Results Laboratory Results: 01/06/17 11:15 Carbonic Acid 1.60 H HCO3/H2CO3 Ratio 18:1 ABG pH 7.36 ABG pCO2 53.1 H ABG pO2 110.7 H ABG HCO3 29.3 H ABG O2 Saturation 97.8 ABG Base Excess 2.9 FiO2 35% Impressions: Chest X-Ray 01/05/17 11:55 IMPRESSION: Left lower lobe pneumonia. COPD. Assessment & Plan - Diagnosis (1) Acute hypercapnic respiratory failure Is this a current diagnosis for this admission?: YesPlan: She is requiring noninvasive positive pressure ventilation, BiPAP machine to support breathing, she presented with acute hypercapnic respiratory failure due to severe pneumonia affecting the left lung (2) Pneumonia Qualifiers: Pneumonia type: due to unspecified organism Laterality: left Lung location: unspecified part of lung Qualified Code(s): J18.9 - Pneumonia, unspecified organism Is this a current diagnosis for this admission?: YesPlan: She is on cefepime and Levaquin, I also suspect that she may have aspiration pneumonia she probably would do well on (3) COPD (chronic obstructive pulmonary disease) Qualifiers: COPD type: unspecified COPD Qualified Code(s): J44.9 - Chronic obstructive pulmonary disease, unspecified Is this a current diagnosis for this admission?: Yes (4) Cachexia Is this a current diagnosis for this admission?: Yes
[2017-01-06 14:35] LABS: THYROID STIMULATING HORMONE 0.04 uIU/mL (0.47-4.68)
[2017-01-06] MEDS: PIPERACILLIN SODIUM/TAZOBACTAM 3.375 GM in NORMAL SALINE 100 ML IV SCH ×2 (15:45→21:39)
[2017-01-06] MEDS: LEVOFLOXACIN 750 MG/D5W RTU 750 MG/150 ML RTUPB IV SCH (17:28)
--- NOTE | 2017-01-06 19:13 | PDOC PROGRESS REPORT ---
Subjective Progress Note for:: 01/06/17 Subjective:: Patient was admitted yesterday because of acute hypercapnic respiratory failure due to severe left lung pneumonia, she was seen by the bedside she continues to require noninvasive positive pressure ventilation, BiPAP machine Physical Exam Vital Signs: Temp Pulse Resp BP Pulse Ox 98.0 F 119 H 28 H 157/78 H 100 01/06/17 16:16 01/06/17 16:16 01/06/17 16:16 01/06/17 16:16 01/06/17 16:16 Intake & Output 01/05/17 01/06/17 01/07/17 06:59 06:59 06:59 Intake Total 2327 658 Balance 2327 658 Weight 36 kg General appearance: PRESENT: severe distress Eye exam: PRESENT: PERRLA Respiratory exam: PRESENT: crackles, wheezes Cardiovascular exam: PRESENT: +S1, +S2 GI/Abdominal exam: PRESENT: soft Neurological exam: PRESENT: alert, CN II-XII grossly intact Results Laboratory Results: 01/06/17 01/06/17 01/06/17 11:15 13:10 13:10 Carbonic Acid 1.60 H HCO3/H2CO3 Ratio 18:1 ABG pH 7.36 ABG pCO2 53.1 H ABG pO2 110.7 H ABG HCO3 29.3 H ABG O2 Saturation 97.8 ABG Base Excess 2.9 FiO2 35% Ammonia < 8.7 L Amylase < 30 L TSH Free T4 01/06/17 13:10 Carbonic Acid HCO3/H2CO3 Ratio ABG pH ABG pCO2 ABG pO2 ABG HCO3 ABG O2 Saturation ABG Base Excess FiO2 Ammonia Amylase TSH 0.04 L Free T4 1.62 01/06/17 01/06/17 13:10 13:10 Creatine Kinase 42 Troponin I 0.174 Impressions: Chest X-Ray 01/05/17 11:55 IMPRESSION: Left lower lobe pneumonia. COPD. Assessment & Plan - Diagnosis (1) Acute hypercapnic respiratory failure Is this a current diagnosis for this admission?: YesPlan: She will continue noninvasive positive pressure ventilation with BiPAP machine, (2) Pneumonia Qualifiers: Pneumonia type: due to unspecified organism Laterality: left Lung location: unspecified part of lung Qualified Code(s): J18.9 - Pneumonia, unspecified organism Is this a current diagnosis for this admission?: Yes (3) COPD (chronic obstructive pulmonary disease) Qualifiers: COPD type: unspecified COPD Qualified Code(s): J44.9 - Chronic obstructive pulmonary disease, unspecified Is this a current diagnosis for this admission?: Yes (4) Cachexia Is this a current diagnosis for this admission?: Yes - Plan Summary Plan Summary: She will continue BiPAP machine, antibiotic IV Zosyn was added because of concern for aspiration pneumonia.
[2017-01-06] MEDS ORDERED: ONDANSETRON HCL INJ/PF 4 MG/2 ML SDV ONE (21:19)
[2017-01-06] MEDS: FAMOTIDINE INJ/PF 20 MG/2 ML SDV IV SCH (21:38)
[2017-01-06] MEDS: CEFEPIME HCL 2 GM in DEXTROSE 5%-WATER 100 ML IV SCH (21:39)
[2017-01-06] MEDS ORDERED: CEFEPIME HCL 2 GM in DEXTROSE 5%-WATER 50 ML IV SCH (22:00)
[2017-01-06] MEDS ORDERED: LEVALBUTEROL HCL NEB 0.63 MG/3 ML AMPUL NEB PRN (22:48)
[2017-01-07] MEDS: ENALAPRILAT DIHYDRATE INJ/PF 2.5 MG/2 ML SDV IV SCH ×4 (00:05→18:44)
[2017-01-07] MEDS: PIPERACILLIN SODIUM/TAZOBACTAM 3.375 GM in NORMAL SALINE 100 ML IV SCH ×4 (03:05→22:05)
[2017-01-07 07:26] LABS: HEMATOCRIT 32.9 % (36.0-47.0); HGB HCT DIFFERENCE -0.5; MEAN CORPUSCULAR HEMOGLOBIN 30.9 pg (27.0-33.4); MEAN CORPUSCULAR HGB CONC 32.9 g/dL (32.0-36.0); MEAN CORPUSCULAR VOLUME 94 fl (80-97); RED BLOOD COUNT 3.51 10^6/uL (3.72-5.28); RED CELL DISTRIBUTION WIDTH 15.1 % (11.5-14.0); WHITE BLOOD COUNT 14.9 10^3/uL (4.0-10.5)
[2017-01-07 07:34] LABS: PATH REVIEW PATHOLOGIST REVIEWED
[2017-01-07 07:36] LABS: ALANINE AMINOTRANSFERASE 55 U/L (9-52); ALBUMIN 3.4 g/dL (3.5-5.0); ALKALINE PHOSPHATASE 81 U/L (38-126); ANION GAP 9 (5-19); ASPARTATE AMINO TRANSFERASE 27 U/L (14-36); BILIRUBIN,DIRECT 0.2 mg/dL (0.0-0.4); BILIRUBIN,TOTAL 0.6 mg/dL (0.2-1.3); BLOOD UREA NITROGEN 8 mg/dL (7-20); CALCIUM 10.4 mg/dL (8.4-10.2); CARBON DIOXIDE 30 mmol/L (22-30); CHLORIDE 100 mmol/L (98-107); CHOLESTEROL 181.87 mg/dL (0-200); CREATININE RESULT 0.28 mg/dL (0.52-1.25); Direct HDL 106 mg/dL (>40); GLUCOSE 66 mg/dL (75-110); MAGNESIUM 1.7 mg/dL (1.6-2.3); PHOSPHORUS 2.7 mg/dL (2.5-4.5); POTASSIUM 3.5 mmol/L (3.6-5.0); SODIUM 139.1 mmol/L (137-145); TOTAL PROTEIN 5.2 g/dL (6.3-8.2); TRIGLYCERIDES 155 mg/dL (<150)
[2017-01-07 07:37] LABS: HEMOGLOBIN 10.8 g/dL (12.0-15.5)
[2017-01-07 07:47] LABS: DIRECT LDL 48 mg/dL (<100)
[2017-01-07 07:51] LABS: BASOPHILS % (MANUAL) 0 % (0-2); EOSINOPHILS % (MANUAL) 0 % (0-6); LYMPHOCYTES % (MANUAL) 7 % (13-45); TOTAL CELLS COUNTED 100
[2017-01-07 07:52] LABS: ANISOCYTOSIS SLIGHT; TOXIC GRANULATION SLIGHT
[2017-01-07] MEDS ORDERED: ENOXAPARIN SODIUM INJ 40 MG/0.4 ML DISP.SYRIN SUBCUT SCH (08:00)
[2017-01-07] MEDS: CEFEPIME HCL 2 GM in DEXTROSE 5%-WATER 100 ML IV SCH (10:02)
[2017-01-07] MEDS: FAMOTIDINE INJ/PF 20 MG/2 ML SDV IV SCH ×2 (10:05→22:04)
[2017-01-07] MEDS: ENOXAPARIN SODIUM INJ 30 MG/0.3 ML DISP.SYRIN SUBCUT SCH (10:06)
[2017-01-07] MEDS: NORMAL SALINE 1000 ML 1,000 ML IV PRN (12:08)
[2017-01-07] MEDS: LEVOFLOXACIN 750 MG/D5W RTU 750 MG/150 ML RTUPB IV SCH (18:45)
[2017-01-07] MEDS ORDERED: TRAMADOL HCL 50 MG TABLET PO PRN (19:32)
--- NOTE | 2017-01-07 20:19 | PDOC PROGRESS REPORT ---
Subjective Progress Note for:: 01/07/17 Subjective:: Patient was seen by the bedside, she continues to require noninvasive positive pressure ventilation with BiPAP Physical Exam Vital Signs: Temp Pulse Resp BP Pulse Ox 99.0 F 98 20 169/89 H 90 L 01/07/17 19:28 01/07/17 19:28 01/07/17 19:28 01/07/17 19:28 01/07/17 19:28 Intake & Output 01/06/17 01/07/17 01/08/17 06:59 06:59 06:59 Intake Total 2327 1188 254 Balance 2327 1188 254 Weight 36 kg 40 kg General appearance: PRESENT: severe distress Eye exam: PRESENT: PERRLA Respiratory exam: PRESENT: crackles Cardiovascular exam: PRESENT: +S1, +S2 GI/Abdominal exam: PRESENT: soft Neurological exam: PRESENT: alert, CN II-XII grossly intact Results Laboratory Results: 01/07/17 07:13 01/07/17 07:13 01/07/17 01/07/17 07:13 07:13 WBC 14.9 H RBC 3.51 L Hgb 10.8 L D Hct 32.9 L MCV 94 MCH 30.9 MCHC 32.9 RDW 15.1 H Plt Count 118 L Seg Neutrophils % Not Reportable Lymphocytes % Not Reportable Monocytes % Not Reportable Eosinophils % Not Reportable Basophils % Not Reportable Absolute Neutrophils Not Reportable Absolute Lymphocytes Not Reportable Absolute Monocytes Not Reportable Absolute Eosinophils Not Reportable Absolute Basophils Not Reportable Sodium 139.1 Potassium 3.5 L Chloride 100 Carbon Dioxide 30 Anion Gap 9 BUN 8 Creatinine 0.28 L Est GFR ( Amer) > 60 Est GFR (Non-Af Amer) > 60 Glucose 66 L Calcium 10.4 H Phosphorus 2.7 Magnesium 1.7 Total Bilirubin 0.6 AST 27 ALT 55 H Alkaline Phosphatase 81 Total Protein 5.2 L Albumin 3.4 L Triglycerides 155 H Cholesterol 181.87 LDL Cholesterol Direct 48 VLDL Cholesterol 31.0 HDL Cholesterol 106 01/06/17 01/06/17 01/06/17 13:10 13:10 19:00 Creatine Kinase 42 38 Troponin I 0.174 01/06/17 01/07/17 01/07/17 19:00 01:07 01:07 Creatine Kinase 41 Troponin I 0.196 0.140 Impressions: Chest X-Ray 01/05/17 11:55 IMPRESSION: Left lower lobe pneumonia. COPD. Assessment & Plan - Diagnosis (1) Acute hypercapnic respiratory failure Is this a current diagnosis for this admission?: YesPlan: She will continue BiPAP machine (2) Pneumonia Qualifiers: Pneumonia type: due to unspecified organism Laterality: left Lung location: unspecified part of lung Qualified Code(s): J18.9 - Pneumonia, unspecified organism Is this a current diagnosis for this admission?: YesPlan: She will continue IV antibiotic (3) COPD (chronic obstructive pulmonary disease) Qualifiers: COPD type: unspecified COPD Qualified Code(s): J44.9 - Chronic obstructive pulmonary disease, unspecified Is this a current diagnosis for this admission?: Yes (4) Cachexia Is this a current diagnosis for this admission?: Yes
[2017-01-08] MEDS: ENALAPRILAT DIHYDRATE INJ/PF 2.5 MG/2 ML SDV IV SCH ×3 (00:32→12:55)
[2017-01-08] MEDS: PIPERACILLIN SODIUM/TAZOBACTAM 3.375 GM in NORMAL SALINE 100 ML IV SCH ×4 (03:31→20:55)
[2017-01-08] MEDS: ACETAMINOPHEN 650 MG SUPP.RECT PR PRN ×2 (03:31→16:29)
[2017-01-08 05:03] LABS: MAGNESIUM 1.6 mg/dL (1.6-2.3); PHOSPHORUS 2.5 mg/dL (2.5-4.5)
[2017-01-08 05:21] LABS: HEMATOCRIT 32.1 % (36.0-47.0); HEMOGLOBIN 10.8 g/dL (12.0-15.5); HGB HCT DIFFERENCE 0.3; MEAN CORPUSCULAR HEMOGLOBIN 30.7 pg (27.0-33.4); MEAN CORPUSCULAR HGB CONC 33.5 g/dL (32.0-36.0); MEAN CORPUSCULAR VOLUME 92 fl (80-97); RED BLOOD COUNT 3.51 10^6/uL (3.72-5.28); RED CELL DISTRIBUTION WIDTH 14.5 % (11.5-14.0); WHITE BLOOD COUNT 11.3 10^3/uL (4.0-10.5)
[2017-01-08 05:33] LABS: BAND NEUTROPHILS % (MANUAL) 1 % (3-5); BASOPHILS % (MANUAL) 0 % (0-2); EOSINOPHILS % (MANUAL) 0 % (0-6); LYMPHOCYTES % (MANUAL) 7 % (13-45); TOTAL CELLS COUNTED 100
[2017-01-08 05:34] LABS: TOXIC GRANULATION SLIGHT
[2017-01-08 05:35] LABS: ANISOCYTOSIS SLIGHT; BURR CELLS SLIGHT; SCHISTOCYTES SLIGHT; TEAR DROP CELLS SLIGHT
[2017-01-08] MEDS: FAMOTIDINE INJ/PF 20 MG/2 ML SDV IV SCH ×2 (10:09→21:00)
[2017-01-08] MEDS ORDERED: LORAZEPAM 0.5 MG TABLET PO PRN (17:26)
[2017-01-08] MEDS ORDERED: ACETAMINOPHEN 325 MG TABLET PO PRN (17:26)
--- NOTE | 2017-01-08 17:30 | PDOC PROGRESS REPORT ---
Subjective Progress Note for:: 01/08/17 Subjective:: She was seen by the bedside, she is still requiring BiPAP machine to support breathing but she is showing some improvement, she is not able to eat food without the BiPAP machine Physical Exam Vital Signs: Temp Pulse Resp BP Pulse Ox 97.9 F 77 16 155/88 H 96 01/08/17 16:00 01/08/17 16:00 01/08/17 16:00 01/08/17 16:00 01/08/17 16:00 Intake & Output 01/07/17 01/08/17 01/09/17 06:59 06:59 06:59 Intake Total 1188 774 Balance 1188 774 Weight 40 kg 39.3 kg General appearance: PRESENT: mild distress, thin Eye exam: PRESENT: PERRLA Respiratory exam: PRESENT: crackles Cardiovascular exam: PRESENT: +S1, +S2 Neurological exam: PRESENT: alert Results Laboratory Results: 01/08/17 04:08 01/07/17 07:13 01/08/17 01/08/17 04:08 04:08 WBC 11.3 H RBC 3.51 L Hgb 10.8 L Hct 32.1 L MCV 92 MCH 30.7 MCHC 33.5 RDW 14.5 H Plt Count 112 L Seg Neutrophils % Not Reportable Lymphocytes % Not Reportable Monocytes % Not Reportable Eosinophils % Not Reportable Basophils % Not Reportable Absolute Neutrophils Not Reportable Absolute Lymphocytes Not Reportable Absolute Monocytes Not Reportable Absolute Eosinophils Not Reportable Absolute Basophils Not Reportable Phosphorus 2.5 Magnesium 1.6 01/06/17 01/06/17 01/06/17 13:10 13:10 19:00 Creatine Kinase 42 38 Troponin I 0.174 01/06/17 01/07/17 01/07/17 19:00 01:07 01:07 Creatine Kinase 41 Troponin I 0.196 0.140 Impressions: Chest X-Ray 01/05/17 11:55 IMPRESSION: Left lower lobe pneumonia. COPD. Assessment & Plan - Diagnosis (1) Acute hypercapnic respiratory failure Is this a current diagnosis for this admission?: Yes (2) Pneumonia Qualifiers: Pneumonia type: due to unspecified organism Laterality: left Lung location: unspecified part of lung Qualified Code(s): J18.9 - Pneumonia, unspecified organism Is this a current diagnosis for this admission?: Yes (3) COPD (chronic obstructive pulmonary disease) Qualifiers: COPD type: unspecified COPD Qualified Code(s): J44.9 - Chronic obstructive pulmonary disease, unspecified Is this a current diagnosis for this admission?: Yes (4) Cachexia Is this a current diagnosis for this admission?: Yes (5) Protein calorie malnutrition Is this a current diagnosis for this admission?: Yes (6) Underweight Is this a current diagnosis for this admission?: Yes - Plan Summary Plan Summary: She will continue IV antibiotic, noninvasive positive pressure ventilation with BiPAP
[2017-01-08] MEDS: ENOXAPARIN SODIUM INJ 30 MG/0.3 ML DISP.SYRIN SUBCUT SCH (17:43)
[2017-01-08] MEDS ORDERED: PRENATAL VITAMIN W-O CA NO5/FE FUMARATE/FA CAPSULE PO ONE (18:00)
[2017-01-08] MEDS ORDERED: CITALOPRAM HYDROBROMIDE 20 MG TABLET PO ONE (18:00)
[2017-01-08] MEDS ORDERED: POLYETHYLENE GLYCOL 3350 POWDER 17 GM/1 PACKET PO ONE (18:00)
[2017-01-08] MEDS: DOCUSATE SODIUM 100 MG CAPSULE PO SCH (18:22)
[2017-01-08] MEDS: CARVEDILOL 6.25 MG TABLET PO SCH (18:22)
[2017-01-08] MEDS: LEVOFLOXACIN 750 MG/D5W RTU 750 MG/150 ML RTUPB IV SCH (18:23)
[2017-01-08] MEDS: CLONIDINE HCL 0.1 MG TABLET PO SCH (18:23)
[2017-01-08] MEDS: LEVALBUTEROL HCL NEB 1.25 MG/3 ML AMPUL NEB SCH (20:10)
[2017-01-08] MEDS: IPRATROPIUM BROMIDE 0.02% NEB 0.5 MG/2.5 ML AMPUL NEB SCH (20:10)
[2017-01-08] MEDS: LOSARTAN POTASSIUM 50 MG TABLET PO SCH (21:00)
[2017-01-09] MEDS: LEVALBUTEROL HCL NEB 1.25 MG/3 ML AMPUL NEB SCH ×4 (02:23→20:12)
[2017-01-09] MEDS: IPRATROPIUM BROMIDE 0.02% NEB 0.5 MG/2.5 ML AMPUL NEB SCH ×4 (02:23→20:12)
[2017-01-09] MEDS: PIPERACILLIN SODIUM/TAZOBACTAM 3.375 GM in NORMAL SALINE 100 ML IV SCH ×4 (03:33→21:03)
[2017-01-09 04:34] LABS: ABSOLUTE LYMPHOCYTES (AUTO) 0.5 10^3/uL (0.5-4.7); ABSOLUTE NEUT (AUTO) 5.3 10^3/uL (1.7-8.2); BASOPHILS % (AUTO) 0.2 % (0-2); EOSINOPHILS % (AUTO) 0.1 % (0-6); HEMATOCRIT 29.4 % (36.0-47.0); HEMOGLOBIN 9.8 g/dL (12.0-15.5); LYMPHOCYTES % (AUTO) 7.6 % (13-45); MEAN CORPUSCULAR HEMOGLOBIN 30.1 pg (27.0-33.4); MEAN CORPUSCULAR HGB CONC 33.4 g/dL (32.0-36.0); MEAN CORPUSCULAR VOLUME 90 fl (80-97); MONOCYTES % (AUTO) 14.4 % (3-13); RED BLOOD COUNT 3.26 10^6/uL (3.72-5.28); RED CELL DISTRIBUTION WIDTH 14.7 % (11.5-14.0); SEGMENTED NEUTROPHILS % (AUTO) 77.7 % (42-78); WHITE BLOOD COUNT 6.9 10^3/uL (4.0-10.5)
[2017-01-09 04:35] LABS: MAGNESIUM 1.6 mg/dL (1.6-2.3); PHOSPHORUS 2.1 mg/dL (2.5-4.5)
[2017-01-09] MEDS: CLONIDINE HCL 0.1 MG TABLET PO SCH ×2 (06:11→17:38)
[2017-01-09] MEDS: CARVEDILOL 6.25 MG TABLET PO SCH ×2 (06:11→17:38)
[2017-01-09 08:43] LABS: ANION GAP 7 (5-19); BLOOD UREA NITROGEN 4 mg/dL (7-20); CALCIUM 9.1 mg/dL (8.4-10.2); CARBON DIOXIDE 33 mmol/L (22-30); CHLORIDE 99 mmol/L (98-107); CREATININE RESULT 0.31 mg/dL (0.52-1.25); GLUCOSE 161 mg/dL (75-110); SODIUM 139.2 mmol/L (137-145)
[2017-01-09] MEDS: ONDANSETRON HCL INJ/PF 4 MG/2 ML SDV IV PRN (08:43)
[2017-01-09 08:58] LABS: POTASSIUM 2.2 mmol/L (3.6-5.0)
[2017-01-09] MEDS: FAMOTIDINE INJ/PF 20 MG/2 ML SDV IV SCH ×2 (10:50→21:04)
[2017-01-09] MEDS: PRENATAL VITAMIN W-O CA NO5/FE FUMARATE/FA CAPSULE PO SCH (10:50)
[2017-01-09] MEDS: CITALOPRAM HYDROBROMIDE 20 MG TABLET PO SCH (10:51)
[2017-01-09] MEDS: POLYETHYLENE GLYCOL 3350 POWDER 17 GM/1 PACKET PO SCH (11:06)
[2017-01-09] MEDS: DOCUSATE SODIUM 100 MG CAPSULE PO SCH ×2 (11:06→17:38)
[2017-01-09] MEDS: POTASSIUM CHLORIDE 20 MEQ/50 ML RTU IV SCH ×4 (11:21→17:35)
[2017-01-09] MEDS: LEVOFLOXACIN 750 MG/D5W RTU 750 MG/150 ML RTUPB IV SCH (17:37)
--- NOTE | 2017-01-09 19:30 | PDOC PROGRESS REPORT ---
Subjective Progress Note for:: 01/09/17 Subjective:: She has severe hypokalemia, the serum potassium was 2.2, she is still not eating that much and she continues to require noninvasive positive pressure ventilation, BiPAP machine Physical Exam Vital Signs: Temp Pulse Resp BP Pulse Ox 98.7 F 71 18 143/74 H 95 01/09/17 16:11 01/09/17 16:11 01/09/17 16:51 01/09/17 16:11 01/09/17 16:51 Intake & Output 01/08/17 01/09/17 01/10/17 06:59 06:59 06:59 Intake Total 772029 Balance 772029 Weight 39.3 kg 40.7 kg General appearance: PRESENT: thin, other - She is on BiPAP machine Neck exam: PRESENT: full ROM Respiratory exam: PRESENT: wheezes Cardiovascular exam: PRESENT: RRR, +S1, +S2 GI/Abdominal exam: PRESENT: normal bowel sounds, soft Rectal exam: PRESENT: deferred Neurological exam: PRESENT: alert Skin exam: PRESENT: dry, intact, warm Results Laboratory Results: 01/09/17 04:07 01/09/17 08:02 01/09/17 01/09/17 01/09/17 04:07 04:07 04:07 WBC 6.9 RBC 3.26 L Hgb 9.8 L Hct 29.4 L MCV 90 MCH 30.1 MCHC 33.4 RDW 14.7 H Plt Count 85 L Seg Neutrophils % 77.7 Lymphocytes % 7.6 L Monocytes % 14.4 H Eosinophils % 0.1 Basophils % 0.2 Absolute Neutrophils 5.3 Absolute Lymphocytes 0.5 Absolute Monocytes 1.0 Absolute Eosinophils 0.0 Absolute Basophils 0.0 Sodium Cancelled Potassium Cancelled Chloride Cancelled Carbon Dioxide Cancelled Anion Gap Cancelled BUN Cancelled Creatinine Cancelled Est GFR ( Amer) Cancelled Est GFR (Non-Af Amer) Cancelled Glucose Cancelled Calcium Cancelled Phosphorus 2.1 L Magnesium 1.6 01/09/17 08:02 WBC RBC Hgb Hct MCV MCH MCHC RDW Plt Count Seg Neutrophils % Lymphocytes % Monocytes % Eosinophils % Basophils % Absolute Neutrophils Absolute Lymphocytes Absolute Monocytes Absolute Eosinophils Absolute Basophils Sodium 139.2 Potassium 2.2 L* Chloride 99 Carbon Dioxide 33 H Anion Gap 7 BUN 4 L Creatinine 0.31 L Est GFR ( Amer) > 60 Est GFR (Non-Af Amer) > 60 Glucose 161 H Calcium 9.1 Phosphorus Magnesium 01/06/17 01/06/17 01/06/17 13:10 13:10 19:00 Creatine Kinase 42 38 Troponin I 0.174 01/06/17 01/07/17 01/07/17 19:00 01:07 01:07 Creatine Kinase 41 Troponin I 0.196 0.140 Impressions: Chest X-Ray 01/05/17 11:55 IMPRESSION: Left lower lobe pneumonia. COPD. Assessment & Plan - Diagnosis (1) Acute hypercapnic respiratory failure Is this a current diagnosis for this admission?: Yes (2) Pneumonia Qualifiers: Pneumonia type: due to unspecified organism Laterality: left Lung location: unspecified part of lung Qualified Code(s): J18.9 - Pneumonia, unspecified organism Is this a current diagnosis for this admission?: Yes (3) COPD (chronic obstructive pulmonary disease) Qualifiers: COPD type: unspecified COPD Qualified Code(s): J44.9 - Chronic obstructive pulmonary disease, unspecified Is this a current diagnosis for this admission?: Yes (4) Cachexia Is this a current diagnosis for this admission?: Yes (5) Protein calorie malnutrition Is this a current diagnosis for this admission?: Yes (6) Underweight Is this a current diagnosis for this admission?: Yes (7) Hypokalemia Is this a current diagnosis for this admission?: YesPlan: The etiology is most likely due to IV fluid normal saline, she was given K riders. - Plan Summary Plan Summary: She will continue IV antibiotic
[2017-01-09] MEDS: POTASSI CL 40 MEQ/D5-1/2NS 1L 1,000 ML IV PRN (21:03)
[2017-01-09] MEDS: LOSARTAN POTASSIUM 50 MG TABLET PO SCH (21:04)
[2017-01-10] MEDS: IPRATROPIUM BROMIDE 0.02% NEB 0.5 MG/2.5 ML AMPUL NEB SCH ×4 (02:04→20:45)
[2017-01-10] MEDS: LEVALBUTEROL HCL NEB 1.25 MG/3 ML AMPUL NEB SCH ×4 (02:04→20:45)
[2017-01-10] MEDS: PIPERACILLIN SODIUM/TAZOBACTAM 3.375 GM in NORMAL SALINE 100 ML IV SCH ×3 (04:20→14:38)
[2017-01-10] MEDS: CARVEDILOL 6.25 MG TABLET PO SCH ×2 (06:56→17:28)
[2017-01-10] MEDS: CLONIDINE HCL 0.1 MG TABLET PO SCH ×2 (06:57→17:28)
[2017-01-10] MEDS: FAMOTIDINE INJ/PF 20 MG/2 ML SDV IV SCH (10:04)
[2017-01-10] MEDS: DOCUSATE SODIUM 100 MG CAPSULE PO SCH ×2 (10:04→17:28)
[2017-01-10] MEDS: PRENATAL VITAMIN W-O CA NO5/FE FUMARATE/FA CAPSULE PO SCH (10:04)
[2017-01-10] MEDS: POLYETHYLENE GLYCOL 3350 POWDER 17 GM/1 PACKET PO SCH (10:04)
[2017-01-10] MEDS: CITALOPRAM HYDROBROMIDE 20 MG TABLET PO SCH (10:04)
[2017-01-10 16:13] VITALS: BP 60/45
[2017-01-10] MEDS: LEVOFLOXACIN 750 MG/D5W RTU 750 MG/150 ML RTUPB IV SCH (17:27)
[2017-01-10] MEDS: POTASSI CL 40 MEQ/D5-1/2NS 1L 1,000 ML IV PRN (17:28)
--- NOTE | 2017-01-10 18:37 | Death Summary ---
Summary Date : 01/10/17 Time of :: 18:10 Autopsy: No Resuscitation Status: Do Not Resuscitate - Final Diagnosis (1) Acute hypercapnic respiratory failure Is this a current diagnosis for this admission?: Yes (2) Pneumonia Is this a current diagnosis for this admission?: Yes (3) COPD (chronic obstructive pulmonary disease) Is this a current diagnosis for this admission?: Yes (4) Cachexia Is this a current diagnosis for this admission?: Yes (5) Protein calorie malnutrition Is this a current diagnosis for this admission?: Yes (6) Underweight Is this a current diagnosis for this admission?: Yes (7) Hypokalemia Is this a current diagnosis for this admission?: Yes (8) Sepsis Is this a current diagnosis for this admission?: Yes Hospital Course:: Patient 71-year-old female with history of end-stage COPD, rheumatoid arthritis , severe debilitation, extreme muscle atrophy a DNR status she had respiratory distress in the assisted at [place] and she was transferred to the emergency room for evaluation, chest x-ray showed left lung pneumonia that was associated with hypercapnia ,acute respiratory acidosis with severe sepsis and leukocytosis.she required noninvasive positive pressure ventilation ,BiPAP, she was treated with IV antibiotic including including Zosyn and Levaquin, initially she required cefepime patient a DNR status, hospital course was complicated, there was minimal food intake. She was admitted on January 05, 2017 and she today .
== END 2017-01-10 18:05 | DRG 871 ==
LOC: ER 11:50 → EH 14:46 → 3W 16:48
PROVIDERS: ADMIT Internal Medicine; ATTEND Internal Medicine
PROC: 5A09557 Assistance with Respiratory Ventilation, Greater than 96 Consecutive Hours, Continuous Positive Airway Pressure (ICD-10-PCS; principal; 2017-01-05)
DX: A41.9 Sepsis, unspecified organism (principal); J96.02 Acute respiratory failure with hypercapnia; J18.9 Pneumonia, unspecified organism; R64 Cachexia; Z68.1 Body mass index [BMI] 19.9 or less, adult; E46 Unspecified protein-calorie malnutrition; I10 Essential (primary) hypertension; J44.9 Chronic obstructive pulmonary disease, unspecified; K21.9 Gastro-esophageal reflux disease without esophagitis; M06.9 Rheumatoid arthritis, unspecified; M81.0 Age-related osteoporosis without current pathological fracture; M10.9 Gout, unspecified; Z66 Do not resuscitate; E87.6 Hypokalemia; M62.50 Muscle wasting and atrophy, not elsewhere classified, unspecified site; R65.20 Severe sepsis without septic shock; D72.829 Elevated white blood cell count, unspecified; Z87.891 Personal history of nicotine dependence; Z79.52 Long term (current) use of systemic steroids; Z79.899 Other long term (current) drug therapy
CPT/HCPCS: 36415; 36600; 51701; 71010; 80048; 80053; 80061; 81001; 82140; 82150; 82550; 82803; 83036; 83605; 83735; 84100; 84439; 84443; 84484; 85025; 85610; 85730; 87040; 87804; 93005; 93010; 94640; 94660; 96365; 96375; 99291; J0692; J1650; J1956; J2405; J2543; J2920; J3370; J3480; J3490; J7030; J7614; J7620; S0028